=== PATIENT | male | born 1950 | race Caucasian/White ===

== ENCOUNTER → 2016-05-22 | Outpatient (CLI) | payer MEDICARE, OTHER ==
[~2016-05-22] MED LIST: AMBIEN10 M1 ORAL; AMBIEN5 MG ORAL; AMLODIPINE BES2.5 MG ORAL; ASPIR 8181 MG ORAL; ATORVASTATIN CA40 MG ORAL; CYTOMEL5 MCG ORAL; DEPAKOTE250 MG PO; DEPAKOTE500 MG PO; GABAPENTIN300 MG ORAL; IBUPROFEN600 MG ORAL; KLONOPIN1 MG ORAL; LEVOTHYROXINE25 MCG ORAL; LEXAPRO10 MG ORAL; LOSARTAN POTASS50 MG ORAL; PAMELOR25 MG ORAL; QUETIAPINE FUMA25 MG ORAL; WELLBUTRIN SR100 MG ORAL
--- NOTE | 2016-05-25 11:37 | Reflections ---
05/23/2016 LOCATION: [facility]. SUBJECTIVE: The patient is feeling much better. He went through Detox program and claims to be sober. His last urine tox screen shows positive for barbiturates, but he denies using any medications that are not prescribed. Denies using any barbiturates. His behavior appears to be otherwise pretty stable. He does not appear to be overmedicated on study. MENTAL STATUS EVALUATION: Alert and oriented to self and situation. Mood is anxious. Affect is appropriate. Thought process is linear. Cognition is intact. Impulse control, insight, and judgment are fair. DIAGNOSIS: Bipolar disorder, depressed. PLAN: Continue with current management. Continue to monitor symptoms and behavior. Chart reviewed. Case discussed with staff. No new symptoms, sedation, or side effects. Chang Lancaster M.D. DR: MYLES JOB#: [id number] CC: DAVID
== END | disposition home or self-care (01) ==
LOC: LAB 10:04
DX: F41.9 Anxiety disorder, unspecified (principal)
CPT/HCPCS: 80300

== ENCOUNTER → 2016-05-30 | Outpatient (CLI) | payer MEDICARE, OTHER ==
--- NOTE | 2016-06-01 22:19 | Reflections ---
DATE: 05/30/2016 SUBJECTIVE: Review of systems, the patient has been tested positive for barbiturates. Otherwise, he does not appear to be intoxicated or overmedicated. He seems to be compliant with care and follows directions. MENTAL STATUS EXAMINATION: Alert and oriented to self and situation. Mood is anxious. Affect is appropriate. Thought process is linear. Cognition is intact. Impulse control, insight, and judgment is partially impaired. DIAGNOSIS: Bipolar disorder. PLAN: Continue with current management. Continue to monitor symptoms and behavior. Chart reviewed. Case discussed with staff. No new symptoms observed or reported. Otherwise, we will continue to monitor the case. Chang Lancaster M.D. DR: TIAN JOB#: [id number] CC: DAVID
== END | disposition home or self-care (01) ==
LOC: LAB 11:42
DX: F31.9 Bipolar disorder, unspecified (principal)
CPT/HCPCS: 80300

== ENCOUNTER → 2016-06-13 | Outpatient (CLI) | payer MEDICARE, OTHER ==
--- NOTE | 2016-07-07 01:18 | Progress Note ---
DATE: 06/13/2016 SUBJECTIVE: The patient denies any new complaints. MENTAL STATUS EVALUATION: No change in his mental status exam. Mood is anxious. Affect is appropriate. Thought process is linear. Cognition is intact. Impulse control, insight, and judgment are partially impaired. DIAGNOSIS: Bipolar disorder. PLAN: The patient had drug screen positive for phenobarbital, but the level was extremely low, not suggestive of him abusing phenobarbital. He appears to be fairly well. No agitation. No confusion. No unsteady gait or slurred speech. No side effects. We will continue to monitor the case. Chang Lancaster M.D. DR: ARTI JOB#: [id number] CC:
== END | disposition home or self-care (01) ==
LOC: LAB 12:07
DX: F31.9 Bipolar disorder, unspecified (principal)
CPT/HCPCS: 80301

== ENCOUNTER 2017-01-03 20:35 | Inpatient (IN) | payer MEDICARE, MEDICAID ==
[~2017-01-03] VITALS: Ht 175.3 cm; Wt 111.6 kg
--- NOTE | 2017-01-03 20:51 | Emergency Room Report ---
History of Present Illness General Chief Complaint: Syncope Source: Patient, EMS Present Illness HPI 66YOM BIBEMS from ?psych facility with multiple episodes of "passing out when he sneezes" per EMS. One episode resulted in head trauma - bleeding from back of head. EMS and patient not sure when it occurred Patient himself is poor historian of events today States he has been coughing for 2 weeks. Denies fever/chills, history of asthma /COPD On ASA Denies neck pain, back pain, leg extremity pain, chest pain, SOB, abd pain Allergies: Coded Allergies: ALPRAZOLAM (Verified Adverse Reaction, Intermediate, 01/30/16) slurred speech, unsteady gait, poor decision making Patient History Past Medical History: psych hx Past Surgical History: none, unable to obtain Pertinent Family History: none, unable to obtain Social History: Denies: smoking, alcohol use, drug use Reviewed Nursing Documentation: PMH: Agreed, PSxH: Agreed Nursing Documentation-PMH Past Medical History: No History, Except For Hx Cardiac Problems: No Hx Hypertension: Yes Hx Pacemaker: No Hx Asthma: No Hx COPD: No Hx Cancer: No Hx Gastrointestinal Problems: No History Of Psychiatric Problem: Yes Hx Neurological Problems: No Review of Systems All Other Systems: negative except mentioned in HPI Physical Exam Vital Signs Date Time Temp Pulse Resp B/P (MAP) Pulse Ox O2 Delivery O2 Flow Rate FiO2 01/03/17 20:37 98.8 78 16 96/46 98 Room Air Sp02 EP Interpretation: reviewed, normal General Appearance: normal inspection, well appearing, no apparent distress, alert, mild distress Head: normocephalic, other - 3cm stellate lac to left occiput Eyes: bilateral eye PERRL, bilateral eye EOMI ENT: normal ENT inspection, hearing grossly normal, normal voice Neck: normal inspection, full range of motion, supple, no bony tend Respiratory: normal inspection, lungs clear, normal breath sounds, no respiratory distress, no retraction, no wheezing Cardiovascular #1: regular rate, rhythm, no edema Gastrointestinal: normal inspection, normal bowel sounds, non tender, soft, no guarding, no hernia Genitourinary: no CVA tenderness Musculoskeletal: normal inspection, back normal, normal range of motion, Joaquin' s Sign negative Neurologic: normal inspection, alert, oriented x3, responsive, executive administrator III-XII nml as tested, motor strength/tone normal, speech normal Psychiatric: normal inspection, judgement/insight normal, mood/affect normal Skin: normal inspection, normal color, no rash Lymphatic: normal inspection Medical Decision Making Diagnostic Impression: Primary Impression: Syncope Qualified Codes: R55 - Syncope and collapse Additional Impressions: Head trauma Qualified Codes: S09.90XA - Unspecified injury of head, initial encounter Laceration of head Qualified Codes: S01.91XA - Laceration without foreign body of unspecified part of head, initial encounter Acute on chronic renal insufficiency Dehydration ER Course Head CT negative for acute ICH Lac repaired in ED Tetanus updated SerumCr 2.3. baseline on EMR is 1.6-2 Likely acute on chronic renal failure Initial hypotension improved rapidly with IV fluid, likely dehydration that caused syncope and head trauma no other significant lab abnormalities ECG is NSR no ischemia. CXR No PNA Afebrile, no leuks. Unlikely infection as cause of syncope/trauma Endorsed for Tele to Dr Mendoza at 11pm EKG Diagnostic Results Rate: normal Rhythm: NSR ST Segments: no acute changes ASA given to the pt in ED: No Rhythm Strip Diag. Results EP Interpretation: yes Rate: 72 Rhythm: NSR, no PVC's, no ectopy Chest X-Ray Diagnostic Results Chest X-Ray Diagnostic Results : Chest X-Ray Ordered: Yes # of Views/Limited/Complete: 1 View Indication: Shortness of Breath EP Interpretation: Yes Interpretation: no consolidation, no effusion, no pneumothorax, no acute cardiopulmonary disease Last Vital Signs Date Time Temp Pulse Resp B/P (MAP) Pulse Ox O2 Delivery O2 Flow Rate FiO2 01/03/17 20:37 98.8 78 16 96/46 98 Room Air Status: improved Disposition: ADMITTED INPATIENT Condition: Serious JESSIE ACOSTA M.D. Jan 03, 2017 20:51
[2017-01-03 22:02] LABS: BASOPHILS % (AUTO) 0.5 % (0.0-2.0); EOSINOPHILS % (AUTO) 0.8 % (0.0-3.0); LYMPHOCYTES % (AUTO) 9.9 % (20.0-45.0); MEAN CORPUSCULAR HEMOGLOBIN 33.6 PG (27.0-31.0); MEAN CORPUSCULAR HGB CONC 35.6 G/DL (32.0-36.0); MEAN CORPUSCULAR VOLUME 94 FL (80-99); MEAN PLATELET VOLUME 7.7 FL (6.5-10.1); MONOCYTES % (AUTO) 9.7 % (1.0-10.0); NEUTROPHILS % (AUTO) 79.2 % (45.0-75.0); PLATELET COUNT 196 K/UL (150-450); RED BLOOD COUNT 3.19 M/UL (4.70-6.10); RED CELL DISTRIBUTION WIDTH 11.8 % (11.6-14.8); WHITE BLOOD COUNT 9.9 K/UL (4.8-10.8)
[2017-01-03 22:21] LABS: TROPONIN I < 0.30 ng/mL (<=0.30)
[2017-01-03 22:24] LABS: ALBUMIN/GLOBULIN RATIO 1.4 (1.0-2.7); CALCIUM 8.4 mg/dL (8.6-10.2); CREATININE 2.3 mg/dL (0.7-1.2); GLOMERULAR FILTRATION RATE 28.4 mL/min (>60); POTASSIUM 4.1 mEQ/L (3.4-4.9); TOTAL PROTEIN 5.9 g/dL (6.6-8.7)
[2017-01-03 22:29] VITALS: BP 117/84
[2017-01-03 22:34] LABS: CKMB 2.3 ng/mL (< 6.7)
[2017-01-03] MEDS ORDERED: Tetanus/Diptheria/Pertussis Vaccine 0.5ml Syr IM ONE (23:00)
[2017-01-03 23:40] VITALS: BP 112/65
[2017-01-04] VITALS: BP 109/64
[2017-01-04] MEDS ORDERED: AZITHROMYCIN250 MG ORAL (00:49)
[2017-01-04 01:30] LABS: APPEARANCE,URINE CLEAR; KETONES,URINE NEGATIVE (NEGATIVE); LEUKOCYTE ESTERASE ,URINE 1+ (NEGATIVE); NITRITE,URINE NEGATIVE (NEGATIVE); PH,URINE 6.5 (4.5-8.0); PROTEIN,URINE 1+ (NEGATIVE); UROBILINOGEN,URINE 4 MG/DL (0.0-1.0)
[2017-01-04 01:40] LABS: RBC,URINE 0 /HPF (0 - 0)
[2017-01-04 01:41] LABS: ICTOTEST POSITIVE; WBC,URINE 0-2 /HPF (0 - 0)
[2017-01-04 04:00] VITALS: BP 114/70
[2017-01-04] MEDS ORDERED: Mylanta II UD 30ml ORAL PRN (06:45)
[2017-01-04] MEDS ORDERED: DuoNeb 0.5-3(2.5)mg/3ml neb HHN PRN (06:45)
[2017-01-04] MEDS ORDERED: Miralax 17gm pkt ORAL PRN (06:45)
[2017-01-04] MEDS ORDERED: Nitroglycerin Subl 0.4mg tab SL PRN (06:45)
[2017-01-04] MEDS ORDERED: LORazepam Inj 2mg/ml 1ml IV PRN (06:45)
[2017-01-04 08:33] VITALS: BP 122/68
[2017-01-04] MEDS: BuPROPion SR 150mg tab ORAL SCH (08:41)
[2017-01-04] MEDS: Heparin 5000 units/ml inj SUBQ SCH ×2 (08:44→21:17)
--- NOTE | 2017-01-04 08:46 | Consultation ---
Consult Note Consult Note asked to evaluate for renal failure 66YOM BIBEMS from ?psych facility with multiple episodes of "passing out when he sneezes" per EMS. One episode resulted in head trauma - bleeding from back of head. EMS and patient not sure when it occurred Patient himself is poor historian of events today States he has been coughing for 2 weeks. Denies fever/chills, history of asthma /COPD On ASA Denies neck pain, back pain, leg extremity pain, chest pain, SOB, abd pain Allergies: ALPRAZOLAM (Verified Adverse Reaction, Intermediate, 01/30/16) slurred speech, unsteady gait, poor decision making Patient History Past Medical History: psych hx Hx Hypertension: Yes History Of Psychiatric Problem: Yes Assessment/Plan Renal failure- Acute on chronic Hypotension on presentation Syncope / head laceration Plan: Slow hydrate monitor renal parameters avoid nephrotoxics adjust psych meds ISRRAEL SHARMA Jan 04, 2017 08:46
[2017-01-04] MEDS ORDERED: Nortriptyline 25mg cap ORAL SCH (09:00)
[2017-01-04] MEDS ORDERED: Levothyroxine 25mcg tab ORAL SCH (09:00)
[2017-01-04] MEDS: DuoNeb 0.5-3(2.5)mg/3ml neb HHN SCH ×3 (09:13→19:34)
[2017-01-04] MEDS: Tamsulosin 0.4mg cap ORAL SCH ×2 (09:27→17:06)
[2017-01-04 09:38] LABS: URIC ACID 7.7 mg/dL (3.0-7.5)
--- NOTE | 2017-01-04 10:37 | Diagnostic Imaging Report ---
Indication: Headache. Head trauma Technique: Contiguous 5 mm thick transaxial imaging of the head obtained in a Siemens Sensation [address] scanner. Soft tissue and bone windows generated. Total Dose length Product (DLP): [address] Dose Index Volume (CTDIvol): 70.38, 0.15 mGy Comparison: 10/17/15 Findings: There is mild prominence of the ventricles, basal cisterns, and cerebral sulci consistent with atrophy. Mild, nonspecific, white matter hypoattenuation is noted throughout the brain consistent with chronic small vessel disease. There is no midline shift, edema, acute hemorrhage, mass effect, or abnormal extra-axial fluid collections. Bones and extra osseous soft tissues are unremarkable. Impression: No acute intracranial bleed, mass effect or edema. Mild atrophy of the brain. Nonspecific white matter hypoattenuation probably due to chronic small vessel disease. The CT scanner at [facility] is accredited by the [employer] and the scans are performed using dose optimization techniques as appropriate to a performed exam including Automatic Exposure control.
--- NOTE | 2017-01-04 11:05 | History and Physical ---
History of Present Illness General Date patient seen: Jan 04, 2017 Reason for Hospitalization: Syncope Present Illness HPI The patient is a 66-year-old male with past medical history of psychiatric disorder, bipolar, hypertension, and hypercholesterolemia. The patient was brought in by paramedics to [facility] because of altered level of consciousness and acute encephalopathy, syncope after sneezing. Pt was hypotensive in Er and was started on IV fluids He was also found to be in renal failure. Allergies: Coded Allergies: ALPRAZOLAM (Verified Adverse Reaction, Intermediate, 01/30/16) slurred speech, unsteady gait, poor decision making Medication History Scheduled Amlodipine Besylate* (Amlodipine Besylate*), 5 MG ORAL DAILY, (Reported) Aspirin* (Aspir 81*), 81 MG ORAL DAILY, (Reported) Atorvastatin Calcium* (Atorvastatin Calcium*), 80 MG ORAL BEDTIME, (Reported) Azithromycin* (Zithromax*), 250 MG ORAL DAILY, (Reported) Bupropion Sr* (Wellbutrin Sr*), 150 MG ORAL daily, (Reported) Escitalopram Oxalate* (Lexapro*), 40 MG ORAL DAILY, (Reported) Gabapentin* (Gabapentin*), 300 MG ORAL DAILY, (Reported) Levothyroxine Sodium* (Levothyroxine Sodium*), 10 MCG ORAL DAILY, (Reported) Liothyronine Sodium* (Cytomel*), 5 MCG ORAL BID, (Reported) Losartan Potassium* (Losartan Potassium*), 100 MG ORAL DAILY, (Reported) Nortriptyline Hcl* (Pamelor*), 25 MG ORAL bid, (Reported) Quetiapine Fumarate* (Seroquel*), 50 MG ORAL tid, (Reported) Scheduled PRN Zolpidem Tartrate* (Ambien*), 10 MG ORAL HS PRN for Insomnia, (Reported) Patient History Healthcare decision maker Resuscitation status Full Code Advanced Directive on File No Past Medical/Surgical History Past Medical/Surgical History: (1) ATN (acute tubular necrosis) (2) Psychiatric diagnosis (3) Acute encephalopathy (4) Acute on chronic renal insufficiency (5) Syncope (6) Hypotension Review of Systems All Other Systems: negative except mentioned in HPI Physical Exam General Appearance: WD/WN Lines, tubes and drains: peripheral, central line HEENT: normocephalic, atraumatic Neck: non-tender, normal alignment Respiratory/Chest: chest wall non-tender, lungs clear Breasts: no masses Cardiovascular/Chest: normal peripheral pulses Abdomen: normal bowel sounds, non tender Genitourinary/Rectal: normal genital exam Extremities: normal range of motion Neurologic: story teller II-XII grossly normal Last 24 Hour Vital Signs Date Time Temp Pulse Resp B/P (MAP) Pulse Ox O2 Delivery O2 Flow Rate FiO2 01/04/17 08:33 97.7 69 20 122/68 98 Room Air 01/04/17 07:54 68 01/04/17 04:00 64 01/04/17 04:00 97.5 69 18 114/70 99 Simple Mask 01/04/17 00:00 71 01/04/17 00:00 97.3 74 18 109/64 99 Simple Mask 01/03/17 23:40 73 12 112/65 98 Room Air 01/03/17 23:40 97.9 73 15 117/84 100 Room Air 01/03/17 22:29 97.9 71 15 117/84 100 Room Air 01/03/17 20:37 98.8 78 16 96/46 98 Room Air Intake and Output 01/04/17 01/05/17 19:00 07:00 Intake Total 350 ml Balance 350 ml Intake Oral 350 ml # Voids 1 Laboratory Tests Test 01/03/17 21:10 01/03/17 23:59 01/04/17 08:48 White Blood Count 9.9 K/UL (4.8-10.8) Red Blood Count 3.19 M/UL (4.70-6.10) L Hemoglobin 10.7 G/DL (14.2-18.0) L Hematocrit 30.1 % (42.0-52.0) L Mean Corpuscular Volume 94 FL (80-99) Mean Corpuscular Hemoglobin 33.6 PG (27.0-31.0) H Mean Corpuscular Hemoglobin Concent 35.6 G/DL (32.0-36.0) Red Cell Distribution Width 11.8 % (11.6-14.8) Platelet Count 196 K/UL (150-450) Mean Platelet Volume 7.7 FL (6.5-10.1) Neutrophils (%) (Auto) 79.2 % (45.0-75.0) H Lymphocytes (%) (Auto) 9.9 % (20.0-45.0) L Monocytes (%) (Auto) 9.7 % (1.0-10.0) Eosinophils (%) (Auto) 0.8 % (0.0-3.0) Basophils (%) (Auto) 0.5 % (0.0-2.0) Sodium Level 137 mEQ/L (135-145) Potassium Level 4.1 mEQ/L (3.4-4.9) Chloride Level 99 mEQ/L (98-107) Carbon Dioxide Level 24 mEQ/L (20-30) Anion Gap 14 (5-15) Blood Urea Nitrogen 30 mg/dL (7-23) H Creatinine 2.3 mg/dL (0.7-1.2) H Estimat Glomerular Filtration Rate 28.4 mL/min (>60) Glucose Level 125 mg/dL (74-106) H Lactic Acid Level 1.30 mmol/L (0.66-2.22) Calcium Level 8.4 mg/dL (8.6-10.2) L Total Bilirubin 0.7 mg/dL (0.0-1.2) Aspartate Amino Transf (AST/SGOT) 20 U/L (5-40) Alanine Aminotransferase (ALT/SGPT) 13 U/L (3-41) Alkaline Phosphatase 75 U/L (40-129) Total Creatine Kinase 267 U/L (38-174) H 323 U/L (38-174) H Creatine Kinase MB 2.3 ng/mL (< 6.7) Creatine Kinase MB Relative Index 0.8 Troponin I < 0.30 ng/mL (<=0.30) Total Protein 5.9 g/dL (6.6-8.7) L Albumin 3.5 g/dL (3.5-5.2) Globulin 2.4 g/dL Albumin/Globulin Ratio 1.4 (1.0-2.7) Urine Color Yellow Urine Appearance Clear Urine pH 6.5 (4.5-8.0) Urine Specific [place] 1.010 (1.005-1.035) Urine Protein 1+ (NEGATIVE) H Urine Glucose (UA) Negative (NEGATIVE) Urine Ketones Negative (NEGATIVE) Urine Occult Blood Negative (NEGATIVE) Urine Nitrite Negative (NEGATIVE) Urine Bilirubin 1+ (NEGATIVE) H Urine Ictotest Positive Urine Urobilinogen 4 MG/DL (0.0-1.0) H Urine Leukocyte Esterase 1+ (NEGATIVE) H Urine RBC 0 /HPF (0 - 0) Urine WBC 0-2 /HPF (0 - 0) Urine Squamous Epithelial Cells None /LPF (NONE/OCC) Urine Bacteria None /HPF (NONE) Uric Acid 7.7 mg/dL (3.0-7.5) H Height (Feet): 5 Height (Inches): 9.00 Weight (Pounds): 246 Medications Current Medications Medications (Trade) Dose Ordered Sig/Ira Route PRN Reason Start Time Stop Time Status Last Admin Dose Admin Acetaminophen (Tylenol) 650 mg Q4H PRN ORAL fever 01/04/17 06:45 02/03/17 06:44 Al Hydroxide/Mg Hydroxide (Mylanta II) 30 ml Q6H PRN ORAL dyspepsia 01/04/17 06:45 02/03/17 06:44 Albuterol/ Ipratropium (DuoNeb 0.5-3(2.5)mg/3ml) 3 ml Q4H PRN HHN Shortness of Breath 01/04/17 06:45 01/09/17 06:44 Albuterol/ Ipratropium (DuoNeb 0.5-3(2.5)mg/3ml) 3 ml Q6HRT HHN 01/04/17 07:00 01/09/17 06:59 01/04/17 09:13 Atorvastatin Calcium (Lipitor) 80 mg BEDTIME ORAL 01/04/17 21:00 02/03/17 20:59 Bupropion HCl (Wellbutrin SR) 150 mg DAILY ORAL 01/04/17 09:00 02/03/17 08:59 01/04/17 08:41 Clonidine HCl (Catapres) 0.1 mg Q4H PRN ORAL For High Blood Pressure 01/04/17 06:45 02/03/17 06:44 Dextrose (Dextrose 50%) STAT PRN IV Hypoglycemia 01/04/17 06:45 02/03/17 06:44 Escitalopram Oxalate (Lexapro) 40 mg DAILY ORAL 01/04/17 09:00 02/03/17 08:59 01/04/17 08:41 Gabapentin (Neurontin) 300 mg DAILY ORAL 01/04/17 09:00 02/03/17 08:59 01/04/17 08:41 Heparin Sodium (Porcine) (Heparin 5000 units/ml) 5,000 units EVERY 12 HOURS SUBQ 01/04/17 09:00 02/03/17 08:59 01/04/17 08:44 Liothyronine Sodium (Cytomel) 10 mcg DAILY@0630 ORAL 01/05/17 06:30 02/04/17 06:29 Lorazepam (Ativan 2mg/ml 1ml) 0.5 mg Q4H PRN IV For Anxiety 01/04/17 06:45 01/11/17 06:44 Morphine Sulfate (Morphine Sulfate) 1 mg Q4H PRN IVP For Pain 7-10 01/04/17 06:45 01/11/17 06:44 Nitroglycerin (Ntg) 0.4 mg Q5M X 3 DOSES PRN SL Prn Chest Pain 01/04/17 06:45 02/03/17 06:44 Nortriptyline HCl (Pamelor) 25 mg bid ORAL 01/04/17 09:00 02/03/17 08:59 01/04/17 08:41 Ondansetron HCl (Zofran) 4 mg Q6H PRN IVP Nausea & Vomiting 01/04/17 06:45 02/03/17 06:44 Pneumococcal Polyvalent Vaccine (Pneumovax) 0.5 ml ONCE ONCE IM 01/04/17 11:00 01/04/17 11:01 UNV Polyethylene Glycol (Miralax) 17 gm HSPRN PRN ORAL Constipation 01/04/17 06:45 02/03/17 06:44 Promethazine HCl/ Codeine (Phenergan with Codeine) 5 ml Q4H PRN ORAL For Cough 01/04/17 06:45 02/03/17 06:44 Quetiapine Fumarate (SEROquel) 50 mg tid ORAL 01/04/17 09:00 02/03/17 08:59 01/04/17 08:42 Sodium Chloride 1,000 ml @ 75 mls/hr [id number] IV 01/04/17 08:45 02/03/17 08:44 01/04/17 09:30 Tamsulosin HCl (Flomax) 0.4 mg BID ORAL 01/04/17 09:00 02/03/17 08:59 01/04/17 09:27 Temazepam (Restoril) 15 mg HSPRN PRN ORAL Insomnia 01/04/17 06:45 01/11/17 06:44 Assessment/Plan Problem List: (1) Acute encephalopathy ICD Codes: G93.40 - Encephalopathy, unspecified SNOMED: 3764291 (2) Syncope ICD Codes: R55 - Syncope and collapse SNOMED: 343916867 Qualifiers: Qualified Codes: R55 - Syncope and collapse (3) ATN (acute tubular necrosis) ICD Codes: N17.0 - Acute kidney failure with tubular necrosis SNOMED: 67802928 (4) Hypotension ICD Codes: I95.9 - Hypotension, unspecified SNOMED: 21328732 (5) Psychiatric diagnosis ICD Codes: F99 - Mental disorder, not otherwise specified SNOMED: 18434399, 470035587 Assessment/Plan iv fluids hold bp meds echo renal evaluation. CATALINO MCKENZIE Jan 04, 2017 11:05
[2017-01-04] MEDS: Morphine Sulfate 2mg/ml Inj IVP PRN ×3 (11:28→23:53)
--- NOTE | 2017-01-04 11:31 | Diagnostic Imaging Report ---
Indication: Dyspnea Comparison: None A single view chest radiograph was obtained. Findings: No definite infiltrate or pulmonary vascular congestion identified. The heart is enlarged. The aorta is mildly enlarged consistent with atherosclerotic vascular disease. The bones are osteopenic. Impression: No acute disease
[2017-01-04 13:00] VITALS: BP 109/64
--- NOTE | 2017-01-04 16:33 | Cardiology Progress Note ---
Assessment/Plan Assessment/Plan [id number] post tussive syncoep cough bronchospasm renal insuf htn hyper lipdimia ivf orthosttic vital echo limited hernandez avodi anihypertensives for now Objective Last 24 Hour Vital Signs Date Time Temp Pulse Resp B/P (MAP) Pulse Ox O2 Delivery O2 Flow Rate FiO2 01/04/17 13:35 70 20 100 01/04/17 13:30 69 20 98 Room Air 21 01/04/17 13:00 97.5 70 20 109/64 92 Nasal Cannula 01/04/17 11:58 97.7 01/04/17 11:54 66 01/04/17 08:33 97.7 69 20 122/68 98 Room Air 01/04/17 07:54 68 01/04/17 07:35 70 20 100 01/04/17 07:30 Room Air 21 01/04/17 07:30 69 20 Room Air 21 01/04/17 07:30 68 20 98 Room Air 21 01/04/17 07:30 98 Room Air 21 01/04/17 04:00 64 01/04/17 04:00 97.5 69 18 114/70 99 Simple Mask 01/04/17 00:00 71 01/04/17 00:00 97.3 74 18 109/64 99 Simple Mask 01/03/17 23:40 73 12 112/65 98 Room Air 01/03/17 23:40 97.9 73 15 117/84 100 Room Air 01/03/17 22:29 97.9 71 15 117/84 100 Room Air 01/03/17 20:37 98.8 78 16 96/46 98 Room Air Intake and Output 01/04/17 01/05/17 19:00 07:00 Intake Total 875 ml Balance 875 ml Intake Oral 350 ml IV Total 525 ml # Voids 2 Laboratory Tests Test 01/03/17 21:10 01/03/17 23:59 01/04/17 08:48 White Blood Count 9.9 K/UL (4.8-10.8) Red Blood Count 3.19 M/UL (4.70-6.10) L Hemoglobin 10.7 G/DL (14.2-18.0) L Hematocrit 30.1 % (42.0-52.0) L Mean Corpuscular Volume 94 FL (80-99) Mean Corpuscular Hemoglobin 33.6 PG (27.0-31.0) H Mean Corpuscular Hemoglobin Concent 35.6 G/DL (32.0-36.0) Red Cell Distribution Width 11.8 % (11.6-14.8) Platelet Count 196 K/UL (150-450) Mean Platelet Volume 7.7 FL (6.5-10.1) Neutrophils (%) (Auto) 79.2 % (45.0-75.0) H Lymphocytes (%) (Auto) 9.9 % (20.0-45.0) L Monocytes (%) (Auto) 9.7 % (1.0-10.0) Eosinophils (%) (Auto) 0.8 % (0.0-3.0) Basophils (%) (Auto) 0.5 % (0.0-2.0) Sodium Level 137 mEQ/L (135-145) Potassium Level 4.1 mEQ/L (3.4-4.9) Chloride Level 99 mEQ/L (98-107) Carbon Dioxide Level 24 mEQ/L (20-30) Anion Gap 14 (5-15) Blood Urea Nitrogen 30 mg/dL (7-23) H Creatinine 2.3 mg/dL (0.7-1.2) H Estimat Glomerular Filtration Rate 28.4 mL/min (>60) Glucose Level 125 mg/dL (74-106) H Lactic Acid Level 1.30 mmol/L (0.66-2.22) Calcium Level 8.4 mg/dL (8.6-10.2) L Total Bilirubin 0.7 mg/dL (0.0-1.2) Aspartate Amino Transf (AST/SGOT) 20 U/L (5-40) Alanine Aminotransferase (ALT/SGPT) 13 U/L (3-41) Alkaline Phosphatase 75 U/L (40-129) Total Creatine Kinase 267 U/L (38-174) H 323 U/L (38-174) H Creatine Kinase MB 2.3 ng/mL (< 6.7) Creatine Kinase MB Relative Index 0.8 Troponin I < 0.30 ng/mL (<=0.30) Total Protein 5.9 g/dL (6.6-8.7) L Albumin 3.5 g/dL (3.5-5.2) Globulin 2.4 g/dL Albumin/Globulin Ratio 1.4 (1.0-2.7) Urine Color Yellow Urine Appearance Clear Urine pH 6.5 (4.5-8.0) Urine Specific [place] 1.010 (1.005-1.035) Urine Protein 1+ (NEGATIVE) H Urine Glucose (UA) Negative (NEGATIVE) Urine Ketones Negative (NEGATIVE) Urine Occult Blood Negative (NEGATIVE) Urine Nitrite Negative (NEGATIVE) Urine Bilirubin 1+ (NEGATIVE) H Urine Ictotest Positive Urine Urobilinogen 4 MG/DL (0.0-1.0) H Urine Leukocyte Esterase 1+ (NEGATIVE) H Urine RBC 0 /HPF (0 - 0) Urine WBC 0-2 /HPF (0 - 0) Urine Squamous Epithelial Cells None /LPF (NONE/OCC) Urine Bacteria None /HPF (NONE) Uric Acid 7.7 mg/dL (3.0-7.5) H MICHOACANO BARBER Jan 04, 2017 16:33
[2017-01-04 16:47] VITALS: BP 121/71
[2017-01-04] MEDS ORDERED: Pneumococcal Vaccine 25mcg/0.5ml IM ONE (17:00)
[2017-01-04 20:00] VITALS: BP 119/68
[2017-01-04] MEDS: Nortriptyline 25mg cap ORAL SCH (21:18)
[2017-01-04] MEDS: Atorvastatin 80mg tab ORAL SCH (21:18)
[2017-01-05] VITALS: BP 113/66
[2017-01-05] MEDS: Promethazine/Codeine 5ml UD ORAL PRN (00:33)
--- NOTE | 2017-01-05 00:45 | Consultation ---
DATE OF CONSULTATION: 01/04/2017 CARDIOLOGY CONSULTATION REFERRING PHYSICIAN: Kaylynn Mendoza M.D. REASON FOR REFERRAL: Syncope. History Of Present Illness: This is an elderly 66-year-old gentleman with history of hypertension, hyperlipidemia, and bipolar disorder, who was in a drug rehabilitation program apparently. He has been sober for approximately 9 months. He had some chicken sandwich few nights ago, vomited, and he has been coughing significantly for the past 3 or 4 weeks and whenever he coughs, sometimes he feels like he is going to pass out and on one of these occasions after coughing spell, he found himself on the floor and was bleeding from his scalp. He went to his primary care doctor's office. Paramedics were summoned and instead of taking him to [facility] where he usually gets his care, he was brought here to [facility] and was admitted. This consultation was requested by Dr. Mendoza for management of his syncope. He really does not have any dizziness or lightheadedness on standing. He has not had any chest pain or pressure. No PND. No orthopnea. He does have some shortness of breath on climbing uphill, but he has no pain, pressure, tightness, heaviness, or burning sensation when he does physical activity or climbing uphill at all. He never passed out and this is the first time that this has happened to him. Past Medical History: Positive for high blood pressure, high cholesterol as mentioned, history of substance abuse for which he was sober for 27 years. He had relapse and has basically been sober again for the past 9 months. No cancer, stroke, hepatitis, tuberculosis, asthma, or emphysema. No ulcers, kidney problems, liver problems, thyroid problems, anemia, arthritis, HIV, AIDS, blood clots, or narrowing of the vessels anywhere. ALLERGIES: His allergy is to Xanax apparently. Social History: He used to smoke and drink many years ago, but not any more. He used to be on drugs as mentioned and most recent drug has been some narcotic, apparently pain medication, but he used cocaine on prior occasions as well. Review Of Systems: Gastrointestinal: The episode of nausea and vomiting as mentioned a few nights ago. Genitourinary: Otherwise negative. Pulmonary: Positive for coughing or wheezing. Constitutional: No fever, chills, or night sweats. Neurological: Negative. Cardiac: As mentioned in HPI. PHYSICAL EXAMINATION: General: Shows him to be overweight, middle-aged gentleman, in no respiratory distress. Neck: Supple. No jugular venous distention. No abdominojugular reflux noted. LUNGS: There are wheezes and rhonchi noted bilaterally. Cardiac: Regular rate and rhythm. No heaves, thrills, or gallops noted. ABDOMEN: Soft and nontender. Positive bowel sounds. Obese. EXTREMITIES: There is no clubbing, cyanosis, nor is there any edema. Neurological: He is awake, alert, responsive, and in no apparent respiratory distress. Further data, I have been able to find the graves registration specialist run sheet that indicates that this gentleman was found sitting on the floor alert and oriented with a small laceration noted at the back of the head. The patient had syncope x2 today while sitting. The patient states he had hard cough which caused him to pass out or fall out of chair hitting the corner of a small table onto the floor. Denied any neck or back pain. No chest pains or shortness of breath and apparently the graves registration specialist documented systolic blood pressure of 94/65 and 105/60 prior to his arrival in the emergency room. Laboratory And Diagnostic Data: His laboratory values are white count 9.9, hemoglobin 10.7, and platelet count of 196,000. Sodium 137, potassium 4.1, chloride 94, bicarbonate 24, BUN 30, creatinine 2.2, and glucose of 125. Lactic acid 1.3. Uric acid 7.7. Calcium 8.2. CK 267 and 323. Troponin less than 0.3 and albumin of 3.5. Urinalysis is positive for test, urobilinogen, 1+ leukocyte esterase, and 0 to 2 WBCs. His vital signs on arrival here, he has had blood pressures anywhere between original 96/46 to 122/68. His imaging showed head CT that was performed in the emergency room which shows no intracranial bleed, mass effect, or edema; mild atrophy of the brain and nonspecific white matter hypoattenuation was documented. Chest x-ray showed no acute disease. His electrocardiogram shows normal sinus rhythm, really no significant ST-T wave abnormalities of any significant degree and his telemetry data showed basically sinus rhythm. There are no pauses, no VT, SVT, or bradycardic rhythm documented. ASSESSMENT: 1. Posttussive syncope. 2. Cough and bronchospasm. 3. History of hypertension. 4. History of hyperlipidemia. 5. Bipolar disorder. 6. History of substance abuse, now sober for approximately 9 months. 7. Renal insufficiency. Plan: Dr. Mendoza, this patient was seen in cardiac consultation. The patient usually is on antihypertensive medications. His blood pressure post syncope apparently was on the low side. He usually takes amlodipine as well as losartan as well for his blood pressure, none of which would need to be started at the present time. I do agree with him receiving intravenous fluids and limited workup of his syncope should be initiated including an echocardiogram. The cardiac enzyme will be repeated; however, the signs, symptoms, and description that he provides are really suggestive of syncope and may have been exacerbated by hypotension from medications as well. Further recommendations will be provided depending on the finding of the other tests. In light of his renal insufficiency, his Cozaar should be discontinued long-term. Philipp Zamora M.D. DR: ROSS JOB#: [id number] CC:
[2017-01-05] MEDS: DuoNeb 0.5-3(2.5)mg/3ml neb HHN SCH ×4 (01:25→20:31)
[2017-01-05 04:00] VITALS: BP 100/60
[2017-01-05] MEDS: Morphine Sulfate 2mg/ml Inj IVP PRN (04:26)
[2017-01-05] MEDS: Liothyronine 5mcg tab ORAL SCH (06:52)
[2017-01-05 07:25] LABS: APPEARANCE,URINE SLIGHTLY CLOUDY; KETONES,URINE NEGATIVE (NEGATIVE); LEUKOCYTE ESTERASE ,URINE 1+ (NEGATIVE); NITRITE,URINE NEGATIVE (NEGATIVE); PH,URINE 6 (4.5-8.0); PROTEIN,URINE 1+ (NEGATIVE); UROBILINOGEN,URINE 1 MG/DL (0.0-1.0)
[2017-01-05 08:00] VITALS: BP 113/56
[2017-01-05 08:11] LABS: BACTERIA,URINE FEW /HPF; ICTOTEST NEGATIVE; MUCUS,URINE FEW /LPF (NONE/OCC); RBC,URINE 0-2 /HPF (0 - 0); SQUAMOUS EPITHELIAL CELL,UR OCCASIONAL /LPF (NONE/OCC); WBC,URINE 0-2 /HPF (0 - 0)
[2017-01-05 08:45] LABS: BASOPHILS % (AUTO) 0.4 % (0.0-2.0); EOSINOPHILS % (AUTO) 2.7 % (0.0-3.0); LYMPHOCYTES % (AUTO) 13.6 % (20.0-45.0); MEAN CORPUSCULAR HEMOGLOBIN 31.9 PG (27.0-31.0); MEAN CORPUSCULAR VOLUME 97 FL (80-99); MEAN PLATELET VOLUME 7.2 FL (6.5-10.1); MONOCYTES % (AUTO) 5.3 % (1.0-10.0); PLATELET COUNT 257 K/UL (150-450); RED BLOOD COUNT 3.56 M/UL (4.70-6.10); RED CELL DISTRIBUTION WIDTH 12.2 % (11.6-14.8); WHITE BLOOD COUNT 8.2 K/UL (4.8-10.8)
[2017-01-05 08:50] LABS: PROTHROMBIN TIME 10.2 SEC (9.30-11.50)
[2017-01-05] MEDS: Nortriptyline 25mg cap ORAL SCH ×2 (08:52→21:50)
[2017-01-05] MEDS: Tamsulosin 0.4mg cap ORAL SCH ×2 (08:52→17:28)
[2017-01-05] MEDS: BuPROPion SR 150mg tab ORAL SCH (08:52)
[2017-01-05] MEDS: Heparin 5000 units/ml inj SUBQ SCH ×2 (08:54→21:52)
[2017-01-05 09:01] LABS: ALBUMIN/GLOBULIN RATIO 1.3 (1.0-2.7); CALCIUM 8.5 mg/dL (8.6-10.2); CHOLESTEROL/HDL RATIO 3.6 (3.3-4.4); CREATININE 1.8 mg/dL (0.7-1.2); GLOMERULAR FILTRATION RATE 37.7 mL/min (>60); POTASSIUM 3.8 mEQ/L (3.4-4.9); TOTAL PROTEIN 6.7 g/dL (6.6-8.7)
[2017-01-05 09:04] LABS: CRP QUANT 8.5 mg/dL (< 0.5); MAGNESIUM 2.1 mg/dL (1.7-2.5); PHOSPHORUS 2.9 mg/dL (2.5-4.8); URIC ACID 7.7 mg/dL (3.0-7.5)
[2017-01-05 09:06] LABS: HEMOLYSIS 0; IRON 34 ug/dL (59-158); TOTAL IRON BINDING CAPACITY 248 ug/dL (250-400)
[2017-01-05 09:16] LABS: THYROID STIMULATING HORMONE 1.07 uIU/mL (0.300-4.500)
[2017-01-05 09:30] LABS: LACTATE DEHYDROGENASE 244 U/L (135-230)
[2017-01-05 09:46] LABS: PATH BLOOD SMEAR/OMC SEND TO PATHOLOGIST; RETICULOCYTE COUNT 1.9 % (0.0-2.0)
[2017-01-05 09:55] LABS: ERYTHROCYTE SEDIMENTATION RATE 102 MM/HR (0-20)
[2017-01-05 10:00] LABS: BAND NEUTROPHILS % (MANUAL) 0 % (0-8); BASOPHILS % (MANUAL) 0 % (0-2); EOSINOPHILS % (MANUAL) 4 % (0-3); LYMPHOCYTES % (MANUAL) 16 % (20-45); NEUTROPHILS % (MANUAL) 76 % (45-75); PLATELET ESTIMATE ADEQUATE; TOTAL CELLS COUNTED 100
[2017-01-05 10:01] LABS: TEAR DROP CELLS 1+
[2017-01-05 10:02] LABS: BLISTER CELL 1+; MACROCYTES 1+; PLATELET MORPHOLOGY NORMAL
--- NOTE | 2017-01-05 11:21 | Pulmonology Progress Note ---
Assessment/Plan Problems: (1) Acute encephalopathy (2) Syncope (3) ATN (acute tubular necrosis) (4) Hypotension (5) Psychiatric diagnosis Assessment/Plan add zosyn for presumptive uti and bronchitis renal w/u in progress bp still borderline low all reviewed awaiting psych evaluation as well Subjective ROS Limited/Unobtainable: No Constitutional: Reports: no symptoms HEENT: Repors: no symptoms Respiratory: Reports: no symptoms Allergies: Coded Allergies: ALPRAZOLAM (Verified Adverse Reaction, Intermediate, 01/30/16) slurred speech, unsteady gait, poor decision making Objective Last 24 Hour Vital Signs Date Time Temp Pulse Resp B/P (MAP) Pulse Ox O2 Delivery O2 Flow Rate FiO2 01/05/17 09:00 75 77 80 01/05/17 08:00 70 01/05/17 08:00 97.9 75 23 113/56 96 Nasal Cannula 2.0 01/05/17 07:51 Nasal Cannula 2.0 28 01/05/17 07:51 94 Nasal Cannula 2.0 28 01/05/17 07:30 77 20 93 Nasal Cannula 2.0 28 01/05/17 07:25 78 20 90 Nasal Cannula 2.0 28 01/05/17 04:00 69 01/05/17 04:00 98.0 67 20 100/60 95 Nasal Cannula 2.0 01/05/17 01:33 74 20 93 Nasal Cannula 2.0 28 01/05/17 01:25 75 20 89 Nasal Cannula 2.0 28 01/05/17 00:00 97.2 70 20 113/66 90 Nasal Cannula 01/05/17 00:00 72 01/04/17 20:00 72 01/04/17 20:00 97.9 74 20 119/68 92 Nasal Cannula 01/04/17 19:40 67 20 98 Nasal Cannula 2.0 28 01/04/17 19:35 71 20 93 Nasal Cannula 2.0 28 01/04/17 19:34 Nasal Cannula 2.0 28 01/04/17 17:46 72 80 78 01/04/17 16:47 99.4 102 18 121/71 98 Room Air 01/04/17 15:59 68 01/04/17 13:35 70 20 100 01/04/17 13:30 69 20 98 Room Air 21 01/04/17 13:00 97.5 70 20 109/64 92 Nasal Cannula 01/04/17 11:58 97.7 01/04/17 11:54 66 Intake and Output 01/05/17 01/06/17 19:00 07:00 Output Total 375 ml Balance -375 ml Output Urine Total 375 ml General Appearance: WD/WN HEENT: normocephalic, anicteric Cardiovascular: normal rate, no JVD Abdomen: no organomegaly Genitourinary: normal external genitalia Extremities: no cyanosis Skin: no rash Microbiology Date/Time Source Procedure Growth Status 01/03/17 21:25 Blood Blood Culture - Preliminary NO GROWTH AFTER 24 HOURS Resulted 01/03/17 21:15 Blood Blood Culture - Preliminary NO GROWTH AFTER 24 HOURS Resulted 01/04/17 12:45 Sputum Gram Stain - Final Resulted 01/04/17 12:45 Sputum Sputum Culture - Preliminary NORMAL UPPER RESPIRATORY JEFF AT 24 ... Resulted Laboratory Tests 01/05/17 07:05: Urine Color Lynn, Urine Appearance Slightly cloudy, Urine pH 6, Urine Specific [place] 1.020, Urine Protein 1+H, Urine Glucose (UA) Negative, Urine Ketones Negative, Urine Occult Blood Negative, Urine Nitrite Negative, Urine Bilirubin Negative, Urine Ictotest Negative, Urine Urobilinogen 1H, Urine Leukocyte Esterase 1+H, Urine RBC 0-2H, Urine WBC 0-2, Urine Squamous Epithelial Cells Occasional, Urine Bacteria Few, Urine Mucus FewH, Urine Eosinophils None seen, Urine Random Sodium 79, Urine Potassium Timed 63 01/05/17 07:24: White Blood Count 8.2, Red Blood Count 3.56L, Hemoglobin 11.4L, Hematocrit 34.4L , Mean Corpuscular Volume 97, Mean Corpuscular Hemoglobin 31.9H, Mean Corpuscular Hemoglobin Concent 33.0, Red Cell Distribution Width 12.2, Platelet Count 257, Mean Platelet Volume 7.2, Neutrophils (%) (Auto) 78.0H, Lymphocytes ( %) (Auto) 13.6L, Monocytes (%) (Auto) 5.3, Eosinophils (%) (Auto) 2.7, Basophils (%) (Auto) 0.4, Differential Total Cells Counted 100, Neutrophils % ( Manual) 76H, Lymphocytes % (Manual) 16L, Monocytes % (Manual) 4, Eosinophils % ( Manual) 4H, Basophils % (Manual) 0, Band Neutrophils 0, Platelet Estimate Adequate, Platelet Morphology Normal, Clumped Platelets , Macrocytosis 1+, Tear Drop Cells 1+, Blister Cells 1+, Erythrocyte Sedimentation Rate 102H, Reticulocyte Count 1.9, Prothrombin Time 10.2, Prothromb Time International Ratio 1.0, Activated Partial Thromboplast Time 28, Sodium Level 138, Potassium Level 3.8, Chloride Level 101, Carbon Dioxide Level 25, Anion Gap 12, Blood Urea Nitrogen 28H, Creatinine 1.8H, Estimat Glomerular Filtration Rate 37.7, Glucose Level 127H, Hemoglobin A1c 5.0, Uric Acid 7.7H, Calcium Level 8.5L, Phosphorus Level 2.9, Magnesium Level 2.1, Iron Level 34L, Total Iron Binding Capacity 248L, Percent Iron Saturation 14L, Unsaturated Iron Binding 214, Total Bilirubin 0.6, Gamma Glutamyl Transpeptidase 26, Aspartate Amino Transf (AST/ SGOT) 17, Alanine Aminotransferase (ALT/SGPT) 14, Alkaline Phosphatase 104, Lactate Dehydrogenase 244H, Total Creatine Kinase 352H, C-Reactive Protein, Quantitative 8.5H, Pro-B-Type Natriuretic Peptide 103, Total Protein 6.7, Albumin 3.9, Globulin 2.8, Albumin/Globulin Ratio 1.3, Triglycerides Level 143, Cholesterol Level 201H, LDL Cholesterol 116H, HDL Cholesterol 56, Cholesterol/ HDL Ratio 3.6, Carcinoembryonic Antigen 1.2, Vitamin B12 Level 508, Folate [ Pending], Thyroid Stimulating Hormone (TSH) 1.070 Current Medications Medications (Trade) Dose Ordered Sig/Ira Route PRN Reason Start Time Stop Time Status Last Admin Dose Admin Acetaminophen (Tylenol) 650 mg Q4H PRN ORAL fever 01/04/17 06:45 02/03/17 06:44 Al Hydroxide/Mg Hydroxide (Mylanta II) 30 ml Q6H PRN ORAL dyspepsia 01/04/17 06:45 02/03/17 06:44 Albuterol/ Ipratropium (DuoNeb 0.5-3(2.5)mg/3ml) 3 ml Q4H PRN HHN Shortness of Breath 01/04/17 06:45 01/09/17 06:44 Albuterol/ Ipratropium (DuoNeb 0.5-3(2.5)mg/3ml) 3 ml Q6HRT HHN 01/04/17 07:00 01/09/17 06:59 01/05/17 07:49 Atorvastatin Calcium (Lipitor) 80 mg BEDTIME ORAL 01/04/17 21:00 02/03/17 20:59 01/04/17 21:18 Bupropion HCl (Wellbutrin SR) 150 mg DAILY ORAL 01/04/17 09:00 02/03/17 08:59 01/05/17 08:52 Clonidine HCl (Catapres) 0.1 mg Q4H PRN ORAL For High Blood Pressure 01/04/17 06:45 02/03/17 06:44 Dextrose (Dextrose 50%) STAT PRN IV Hypoglycemia 01/04/17 06:45 02/03/17 06:44 Escitalopram Oxalate (Lexapro) 40 mg DAILY ORAL 01/04/17 09:00 02/03/17 08:59 01/05/17 08:51 Gabapentin (Neurontin) 300 mg DAILY ORAL 01/04/17 09:00 02/03/17 08:59 01/05/17 08:51 Heparin Sodium (Porcine) (Heparin 5000 units/ml) 5,000 units EVERY 12 HOURS SUBQ 01/04/17 09:00 02/03/17 08:59 01/05/17 08:54 Liothyronine Sodium (Cytomel) 10 mcg DAILY@0630 ORAL 01/05/17 06:30 02/04/17 06:29 01/05/17 06:52 Lorazepam (Ativan 2mg/ml 1ml) 0.5 mg Q4H PRN IV For Anxiety 01/04/17 06:45 01/11/17 06:44 Morphine Sulfate (Morphine Sulfate) 1 mg Q4H PRN IVP For Pain 7-10 01/04/17 06:45 01/11/17 06:44 01/05/17 04:26 Nitroglycerin (Ntg) 0.4 mg Q5M X 3 DOSES PRN SL Prn Chest Pain 01/04/17 06:45 02/03/17 06:44 Nortriptyline HCl (Pamelor) 25 mg Q12HR ORAL 01/04/17 21:00 02/03/17 08:59 01/05/17 08:52 Ondansetron HCl (Zofran) 4 mg Q6H PRN IVP Nausea & Vomiting 01/04/17 06:45 02/03/17 06:44 Polyethylene Glycol (Miralax) 17 gm HSPRN PRN ORAL Constipation 01/04/17 06:45 02/03/17 06:44 Promethazine HCl/ Codeine (Phenergan with Codeine) 5 ml Q4H PRN ORAL For Cough 01/04/17 06:45 02/03/17 06:44 01/05/17 00:33 Quetiapine Fumarate (SEROquel) 50 mg tid ORAL 01/04/17 09:00 02/03/17 08:59 01/05/17 08:52 Sodium Chloride 1,000 ml @ 75 mls/hr [id number] IV 01/04/17 08:45 02/03/17 08:44 01/04/17 21:18 Tamsulosin HCl (Flomax) 0.4 mg BID ORAL 01/04/17 09:00 02/03/17 08:59 01/05/17 08:52 Temazepam (Restoril) 15 mg HSPRN PRN ORAL Insomnia 01/04/17 06:45 01/11/17 06:44 CATALINO MCKENZIE Jan 05, 2017 11:21
--- NOTE | 2017-01-05 11:55 | Diagnostic Imaging Report ---
Indication:Elevated Bun and Creatinine. Technique: Grayscale and duplex Doppler imaging of the kidneys performed. Comparison: None Findings: The size, contour, and echogenicity of both kidneys are within normal limits. The right kidney is 9.4 cm. Left kidney 10 cm in length. There is no hydronephrosis. The IVC is unremarkable. There is a mass at the base of the bladder that appears to be contiguous with the prostate gland. There is a moderate degree of shadowing in this location and imaging is somewhat poor. The prostate measures about 5.7 x 5.3 x 4.7 CM. Impression: Apparent mass at the base of the bladder likely on the basis of an enlarged prostate gland. Images are partially obscured and suboptimally evaluated. Suggest further clinical evaluation of the prostate gland. Unremarkable ultrasound kidneys.
[2017-01-05 12:01] VITALS: BP 132/73
[2017-01-05] MEDS: Piperacillin/Tazobactam 3.375 GM in NS 110 ML IVPB SCH ×2 (13:38→21:51)
--- NOTE | 2017-01-05 14:43 | General Progress Note ---
Assessment/Plan Status Narrative Cr lower Assessment/Plan status: Renal failure- Acute on chronic Hypotension on presentation Syncope / head laceration Plan: Slow hydrate monitor renal parameters avoid nephrotoxics adjust psych meds Subjective ROS Limited/Unobtainable: No Constitutional: Reports: malaise, weakness Allergies: Coded Allergies: ALPRAZOLAM (Verified Adverse Reaction, Intermediate, 01/30/16) slurred speech, unsteady gait, poor decision making Objective Last 24 Hour Vital Signs Date Time Temp Pulse Resp B/P (MAP) Pulse Ox O2 Delivery O2 Flow Rate FiO2 01/05/17 13:05 80 20 99 Nasal Cannula 2.0 28 01/05/17 13:00 79 20 98 Nasal Cannula 2.0 28 01/05/17 12:01 97.2 73 24 132/73 94 Nasal Cannula 3.0 01/05/17 11:49 68 01/05/17 09:00 75 77 80 01/05/17 08:00 70 01/05/17 08:00 97.9 75 23 113/56 96 Nasal Cannula 2.0 01/05/17 07:51 Nasal Cannula 2.0 28 01/05/17 07:51 94 Nasal Cannula 2.0 28 01/05/17 07:30 77 20 93 Nasal Cannula 2.0 28 01/05/17 07:25 78 20 90 Nasal Cannula 2.0 28 01/05/17 04:00 69 01/05/17 04:00 98.0 67 20 100/60 95 Nasal Cannula 2.0 01/05/17 01:33 74 20 93 Nasal Cannula 2.0 28 01/05/17 01:25 75 20 89 Nasal Cannula 2.0 28 01/05/17 00:00 97.2 70 20 113/66 90 Nasal Cannula 01/05/17 00:00 72 01/04/17 20:00 72 01/04/17 20:00 97.9 74 20 119/68 92 Nasal Cannula 01/04/17 19:40 67 20 98 Nasal Cannula 2.0 28 01/04/17 19:35 71 20 93 Nasal Cannula 2.0 28 01/04/17 19:34 Nasal Cannula 2.0 28 01/04/17 17:46 72 80 78 01/04/17 16:47 99.4 102 18 121/71 98 Room Air 01/04/17 15:59 68 Intake and Output 01/05/17 01/06/17 19:00 07:00 Output Total 375 ml Balance -375 ml Output Urine Total 375 ml Laboratory Tests 01/05/17 07:05: Urine Color Lynn, Urine Appearance Slightly cloudy, Urine pH 6, Urine Specific [place] 1.020, Urine Protein 1+H, Urine Glucose (UA) Negative, Urine Ketones Negative, Urine Occult Blood Negative, Urine Nitrite Negative, Urine Bilirubin Negative, Urine Ictotest Negative, Urine Urobilinogen 1H, Urine Leukocyte Esterase 1+H, Urine RBC 0-2H, Urine WBC 0-2, Urine Squamous Epithelial Cells Occasional, Urine Bacteria Few, Urine Mucus FewH, Urine Eosinophils None seen, Urine Random Sodium 79, Urine Potassium Timed 63 01/05/17 07:24: White Blood Count 8.2, Red Blood Count 3.56L, Hemoglobin 11.4L, Hematocrit 34.4L , Mean Corpuscular Volume 97, Mean Corpuscular Hemoglobin 31.9H, Mean Corpuscular Hemoglobin Concent 33.0, Red Cell Distribution Width 12.2, Platelet Count 257, Mean Platelet Volume 7.2, Neutrophils (%) (Auto) 78.0H, Lymphocytes ( %) (Auto) 13.6L, Monocytes (%) (Auto) 5.3, Eosinophils (%) (Auto) 2.7, Basophils (%) (Auto) 0.4, Differential Total Cells Counted 100, Neutrophils % ( Manual) 76H, Lymphocytes % (Manual) 16L, Monocytes % (Manual) 4, Eosinophils % ( Manual) 4H, Basophils % (Manual) 0, Band Neutrophils 0, Platelet Estimate Adequate, Platelet Morphology Normal, Clumped Platelets , Macrocytosis 1+, Tear Drop Cells 1+, Blister Cells 1+, Erythrocyte Sedimentation Rate 102H, Reticulocyte Count 1.9, Prothrombin Time 10.2, Prothromb Time International Ratio 1.0, Activated Partial Thromboplast Time 28, Sodium Level 138, Potassium Level 3.8, Chloride Level 101, Carbon Dioxide Level 25, Anion Gap 12, Blood Urea Nitrogen 28H, Creatinine 1.8H, Estimat Glomerular Filtration Rate 37.7, Glucose Level 127H, Hemoglobin A1c 5.0, Uric Acid 7.7H, Calcium Level 8.5L, Phosphorus Level 2.9, Magnesium Level 2.1, Iron Level 34L, Total Iron Binding Capacity 248L, Percent Iron Saturation 14L, Unsaturated Iron Binding 214, Total Bilirubin 0.6, Gamma Glutamyl Transpeptidase 26, Aspartate Amino Transf (AST/ SGOT) 17, Alanine Aminotransferase (ALT/SGPT) 14, Alkaline Phosphatase 104, Lactate Dehydrogenase 244H, Total Creatine Kinase 352H, C-Reactive Protein, Quantitative 8.5H, Pro-B-Type Natriuretic Peptide 103, Total Protein 6.7, Albumin 3.9, Globulin 2.8, Albumin/Globulin Ratio 1.3, Triglycerides Level 143, Cholesterol Level 201H, LDL Cholesterol 116H, HDL Cholesterol 56, Cholesterol/ HDL Ratio 3.6, Carcinoembryonic Antigen 1.2, Vitamin B12 Level 508, Folate [ Pending], Thyroid Stimulating Hormone (TSH) 1.070 01/05/17 07:45: Ferritin [Pending] Height (Feet): 5 Height (Inches): 9.00 Weight (Pounds): 246 General Appearance: no apparent distress Cardiovascular: normal rate Objective no change- no signs of CHF ISRRAEL SHARMA Jan 05, 2017 14:43
--- NOTE | 2017-01-05 14:57 | Cardiology Progress Note ---
Assessment/Plan Assessment/Plan 1. Posttussive syncope. 2. Cough and bronchospasm. 3. History of hypertension. 4. History of hyperlipidemia. 5. Bipolar disorder. 6. History of substance abuse, now sober for approximately 9 months. 7. Renal insufficiency. ivf to dc orthosttic vital neg on 2 occasion echo pending avoid antihypertensives for now bp is fine off med tele neg Subjective Cardiovascular: Denies: chest pain, lightheadedness, palpitations Respiratory: Reports: cough, shortness of breath, wheezing Gastrointestinal/Abdominal: Denies: abdominal pain Genitourinary: Denies: burning Objective Last 24 Hour Vital Signs Date Time Temp Pulse Resp B/P (MAP) Pulse Ox O2 Delivery O2 Flow Rate FiO2 01/05/17 13:05 80 20 99 Nasal Cannula 2.0 28 01/05/17 13:00 79 20 98 Nasal Cannula 2.0 28 01/05/17 12:01 97.2 73 24 132/73 94 Nasal Cannula 3.0 01/05/17 11:49 68 01/05/17 09:00 75 77 80 01/05/17 08:00 70 01/05/17 08:00 97.9 75 23 113/56 96 Nasal Cannula 2.0 01/05/17 07:51 Nasal Cannula 2.0 28 01/05/17 07:51 94 Nasal Cannula 2.0 28 01/05/17 07:30 77 20 93 Nasal Cannula 2.0 28 01/05/17 07:25 78 20 90 Nasal Cannula 2.0 28 01/05/17 04:00 69 01/05/17 04:00 98.0 67 20 100/60 95 Nasal Cannula 2.0 01/05/17 01:33 74 20 93 Nasal Cannula 2.0 28 01/05/17 01:25 75 20 89 Nasal Cannula 2.0 28 01/05/17 00:00 97.2 70 20 113/66 90 Nasal Cannula 01/05/17 00:00 72 01/04/17 20:00 72 01/04/17 20:00 97.9 74 20 119/68 92 Nasal Cannula 01/04/17 19:40 67 20 98 Nasal Cannula 2.0 28 01/04/17 19:35 71 20 93 Nasal Cannula 2.0 28 01/04/17 19:34 Nasal Cannula 2.0 28 01/04/17 17:46 72 80 78 01/04/17 16:47 99.4 102 18 121/71 98 Room Air 01/04/17 15:59 68 General Appearance: alert Neck: no JVD Cardiovascular: normal rate, regular rhythm Respiratory/Chest: rhonchi - bilaterally, expiratory wheezing Abdomen: normal bowel sounds, non tender, soft Extremities: no swelling Intake and Output 01/05/17 01/06/17 19:00 07:00 Output Total 375 ml Balance -375 ml Output Urine Total 375 ml Laboratory Tests Test 01/05/17 07:05 01/05/17 07:24 01/05/17 07:45 Urine Color [place] Urine Appearance Slightly cloudy Urine pH 6 (4.5-8.0) Urine Specific [place] 1.020 (1.005-1.035) Urine Protein 1+ (NEGATIVE) H Urine Glucose (UA) Negative (NEGATIVE) Urine Ketones Negative (NEGATIVE) Urine Occult Blood Negative (NEGATIVE) Urine Nitrite Negative (NEGATIVE) Urine Bilirubin Negative (NEGATIVE) Urine Ictotest Negative Urine Urobilinogen 1 MG/DL (0.0-1.0) H Urine Leukocyte Esterase 1+ (NEGATIVE) H Urine RBC 0-2 /HPF (0 - 0) H Urine WBC 0-2 /HPF (0 - 0) Urine Squamous Epithelial Cells Occasional /LPF Urine Bacteria Few /HPF (NONE) Urine Mucus Few /LPF (NONE/OCC) H Urine Eosinophils None seen Urine Random Sodium 79 mmol/L Urine Potassium Timed 63 mmol/L White Blood Count 8.2 K/UL (4.8-10.8) Red Blood Count 3.56 M/UL (4.70-6.10) L Hemoglobin 11.4 G/DL (14.2-18.0) L Hematocrit 34.4 % (42.0-52.0) L Mean Corpuscular Volume 97 FL (80-99) Mean Corpuscular Hemoglobin 31.9 PG (27.0-31.0) H Mean Corpuscular Hemoglobin Concent 33.0 G/DL (32.0-36.0) Red Cell Distribution Width 12.2 % (11.6-14.8) Platelet Count 257 K/UL (150-450) Mean Platelet Volume 7.2 FL (6.5-10.1) Neutrophils (%) (Auto) 78.0 % (45.0-75.0) H Lymphocytes (%) (Auto) 13.6 % (20.0-45.0) L Monocytes (%) (Auto) 5.3 % (1.0-10.0) Eosinophils (%) (Auto) 2.7 % (0.0-3.0) Basophils (%) (Auto) 0.4 % (0.0-2.0) Differential Total Cells Counted 100 Neutrophils % (Manual) 76 % (45-75) H Lymphocytes % (Manual) 16 % (20-45) L Monocytes % (Manual) 4 % (1-10) Eosinophils % (Manual) 4 % (0-3) H Basophils % (Manual) 0 % (0-2) Band Neutrophils 0 % (0-8) Platelet Estimate Adequate Platelet Morphology Normal Clumped Platelets Macrocytosis 1+ Tear Drop Cells 1+ Blister Cells 1+ Erythrocyte Sedimentation Rate 102 MM/HR (0-20) H Reticulocyte Count 1.9 % (0.0-2.0) Prothrombin Time 10.2 SEC (9.30-11.50) Prothromb Time International Ratio 1.0 (0.9-1.1) Activated Partial Thromboplast Time 28 SEC (23-33) Sodium Level 138 mEQ/L (135-145) Potassium Level 3.8 mEQ/L (3.4-4.9) Chloride Level 101 mEQ/L (98-107) Carbon Dioxide Level 25 mEQ/L (20-30) Anion Gap 12 (5-15) Blood Urea Nitrogen 28 mg/dL (7-23) H Creatinine 1.8 mg/dL (0.7-1.2) H Estimat Glomerular Filtration Rate 37.7 mL/min (>60) Glucose Level 127 mg/dL (74-106) H Hemoglobin A1c 5.0 % (< 6.0) Uric Acid 7.7 mg/dL (3.0-7.5) H Calcium Level 8.5 mg/dL (8.6-10.2) L Phosphorus Level 2.9 mg/dL (2.5-4.8) Magnesium Level 2.1 mg/dL (1.7-2.5) Iron Level 34 ug/dL (59-158) L Total Iron Binding Capacity 248 ug/dL (250-400) L Percent Iron Saturation 14 % (15-50) L Unsaturated Iron Binding 214 ug/dL (112-346) Total Bilirubin 0.6 mg/dL (0.0-1.2) Gamma Glutamyl Transpeptidase 26 U/L (8-61) Aspartate Amino Transf (AST/SGOT) 17 U/L (5-40) Alanine Aminotransferase (ALT/SGPT) 14 U/L (3-41) Alkaline Phosphatase 104 U/L (40-129) Lactate Dehydrogenase 244 U/L (135-230) H Total Creatine Kinase 352 U/L (38-174) H C-Reactive Protein, Quantitative 8.5 mg/dL (< 0.5) H Pro-B-Type Natriuretic Peptide 103 pg/mL (0-125) Total Protein 6.7 g/dL (6.6-8.7) Albumin 3.9 g/dL (3.5-5.2) Globulin 2.8 g/dL Albumin/Globulin Ratio 1.3 (1.0-2.7) Triglycerides Level 143 mg/dL (< 150) Cholesterol Level 201 mg/dL (< 200) H LDL Cholesterol 116 mg/dL (60-99) H HDL Cholesterol 56 mg/dL (> 60) Cholesterol/HDL Ratio 3.6 (3.3-4.4) Carcinoembryonic Antigen 1.2 ng/mL Vitamin B12 Level 508 pg/mL (211-946) Folate Pending Thyroid Stimulating Hormone (TSH) 1.070 uIU/mL (0.300-4.500) Ferritin 114 ng/mL (10-230) Microbiology Date/Time Source Procedure Growth Status 01/03/17 21:25 Blood Blood Culture - Preliminary NO GROWTH AFTER 24 HOURS Resulted 01/03/17 21:15 Blood Blood Culture - Preliminary NO GROWTH AFTER 24 HOURS Resulted 01/04/17 12:45 Sputum Gram Stain - Final Resulted 01/04/17 12:45 Sputum Sputum Culture - Preliminary NORMAL UPPER RESPIRATORY JEFF AT 24 ... Resulted MICHOACANO BARBER Jan 05, 2017 14:57
--- NOTE | 2017-01-05 15:54 | Cardiology Report ---
APPROVED REPORT EKG Measurement Heart [id number] MD 194P44 [id number] Normal sinus rhythm Normal ECG
[2017-01-05 16:00] VITALS: BP 121/74
[2017-01-05 20:00] VITALS: BP 131/64
[2017-01-05] MEDS: Atorvastatin 80mg tab ORAL SCH (21:50)
--- NOTE | 2017-01-05 23:08 | Diagnostic Imaging Report ---
APPROVED REPORT CPT Code: 27850 Vascular Symptoms CVA/TIA: CAROTID (BILATERAL) - Imaging reveals no significant plaque within the right and left extracranial carotid arteries. The Doppler spectral flow analysis is within normal limits throughout the extracranial carotid arteries bilaterally. VERTEBRAL- The vertebral arteries are within normal limits.
[2017-01-06] VITALS: BP 119/73
[2017-01-06] MEDS: DuoNeb 0.5-3(2.5)mg/3ml neb HHN SCH ×4 (01:51→20:00)
[2017-01-06 02:35] LABS: APPEARANCE,URINE CLEAR; KETONES,URINE NEGATIVE (NEGATIVE); LEUKOCYTE ESTERASE ,URINE 1+ (NEGATIVE); NITRITE,URINE NEGATIVE (NEGATIVE); PH,URINE 6 (4.5-8.0); PROTEIN,URINE NEGATIVE (NEGATIVE); UROBILINOGEN,URINE NORMAL MG/DL (0.0-1.0)
[2017-01-06 03:16] LABS: RBC,URINE 0 /HPF (0 - 0); SQUAMOUS EPITHELIAL CELL,UR FEW /LPF (NONE/OCC)
[2017-01-06 04:00] VITALS: BP 134/74
[2017-01-06] MEDS: Piperacillin/Tazobactam 3.375 GM in NS 110 ML IVPB SCH ×3 (05:45→21:56)
[2017-01-06] MEDS: Liothyronine 5mcg tab ORAL SCH (05:49)
[2017-01-06 07:36] LABS: ALBUMIN/GLOBULIN RATIO 1.8 (1.0-2.7); CALCIUM 10.3 mg/dL (8.6-10.2); CREATININE 1.6 mg/dL (0.7-1.2); GLOMERULAR FILTRATION RATE 43.2 mL/min (>60); MAGNESIUM 2.6 mg/dL (1.7-2.5); PHOSPHORUS 3.3 mg/dL (2.5-4.8); POTASSIUM 4.2 mEQ/L (3.4-4.9); URIC ACID 6.3 mg/dL (3.0-7.5)
[2017-01-06 08:00] VITALS: BP 131/71
[2017-01-06] MEDS: Tamsulosin 0.4mg cap ORAL SCH ×2 (09:29→17:23)
[2017-01-06] MEDS: BuPROPion SR 150mg tab ORAL SCH (09:29)
[2017-01-06] MEDS: Nortriptyline 25mg cap ORAL SCH ×2 (09:30→21:56)
[2017-01-06] MEDS: Heparin 5000 units/ml inj SUBQ SCH ×2 (09:33→21:57)
--- NOTE | 2017-01-06 11:16 | General Progress Note ---
Assessment/Plan Status: stable - from renal stand Assessment/Plan status: Renal failure- Acute on chronic- Cr down to 1.6 Hypotension on presentation Syncope / head laceration Plan: Slow hydrate monitor renal parameters avoid nephrotoxics adjust psych meds Subjective ROS Limited/Unobtainable: No Constitutional: Reports: other - getting stronger Allergies: Coded Allergies: ALPRAZOLAM (Verified Adverse Reaction, Intermediate, 01/30/16) slurred speech, unsteady gait, poor decision making Objective Last 24 Hour Vital Signs Date Time Temp Pulse Resp B/P (MAP) Pulse Ox O2 Delivery O2 Flow Rate FiO2 01/06/17 09:00 76 81 84 01/06/17 08:00 71 01/06/17 08:00 97.5 69 20 131/71 99 Nasal Cannula 01/06/17 07:52 Nasal Cannula 2.0 28 01/06/17 07:51 83 20 99 Nasal Cannula 2.0 28 01/06/17 07:37 79 20 94 Nasal Cannula 2.0 28 01/06/17 07:35 94 Nasal Cannula 2.0 28 01/06/17 04:00 65 01/06/17 04:00 97.3 66 20 134/74 95 Room Air 01/06/17 01:49 70 20 98 Nasal Cannula 2.0 28 01/06/17 01:49 74 20 99 Nasal Cannula 2.0 28 01/06/17 00:00 65 01/06/17 00:00 97.0 69 23 119/73 90 Room Air 01/06/17 00:00 53 57 01/05/17 20:00 97.0 69 20 131/64 94 Nasal Cannula 2.0 01/05/17 20:00 69 01/05/17 19:40 72 20 98 Nasal Cannula 2.0 28 01/05/17 19:30 Nasal Cannula 2.0 28 01/05/17 19:30 68 20 97 Nasal Cannula 2.0 28 01/05/17 19:30 97 Nasal Cannula 2.0 28 01/05/17 16:00 97.7 51 23 121/74 98 Room Air 01/05/17 16:00 85 01/05/17 13:05 80 20 99 Nasal Cannula 2.0 28 01/05/17 13:00 79 20 98 Nasal Cannula 2.0 28 01/05/17 12:01 97.2 73 24 132/73 94 Nasal Cannula 3.0 01/05/17 11:49 68 Laboratory Tests 01/06/17 01:30: Urine Color Pale yellow, Urine Appearance Clear, Urine pH 6, Urine Specific [place] 1.015, Urine Protein Negative, Urine Glucose (UA) Negative, Urine Ketones Negative, Urine Occult Blood Negative, Urine Nitrite Negative, Urine Bilirubin Negative, Urine Urobilinogen Normal, Urine Leukocyte Esterase 1+H, Urine RBC 0, Urine WBC 5-10H, Urine Squamous Epithelial Cells Few, Urine Bacteria None, Urine Eosinophils None seen, Urine Random Sodium 67, Urine Potassium Timed 41 01/06/17 06:10: Sodium Level 136, Potassium Level 4.2, Chloride Level 101, Carbon Dioxide Level 25, Anion Gap 10, Blood Urea Nitrogen 20, Creatinine 1.6H, Estimat Glomerular Filtration Rate 43.2, Glucose Level 119H, Uric Acid 6.3, Calcium Level 10.3#H, Phosphorus Level 3.3, Magnesium Level 2.6H, Total Bilirubin 0.6, Aspartate Amino Transf (AST/SGOT) 16, Alanine Aminotransferase (ALT/SGPT) 13, Alkaline Phosphatase 102, Total Protein 6.0L, Albumin 3.9, Globulin 2.1, Albumin/ Globulin Ratio 1.8 Height (Feet): 5 Height (Inches): 9.00 Weight (Pounds): 246 General Appearance: no apparent distress Objective no change- no signs of CHF ISRRAEL SHARMA Jan 06, 2017 11:16
[2017-01-06 12:00] VITALS: BP 127/75
--- NOTE | 2017-01-06 13:33 | Pulmonology Progress Note ---
Assessment/Plan Problems: (1) Acute encephalopathy (2) Syncope (3) ATN (acute tubular necrosis) (4) Hypotension (5) Psychiatric diagnosis Assessment/Plan add zosyn for presumptive uti and bronchitis renal w/u in progress bp still borderline low all reviewed awaiting psych evaluation as well urology called for abnormal bladder US PSa ordered med/surg Subjective ROS Limited/Unobtainable: No Constitutional: Reports: no symptoms HEENT: Repors: no symptoms Respiratory: Reports: no symptoms Allergies: Coded Allergies: ALPRAZOLAM (Verified Adverse Reaction, Intermediate, 01/30/16) slurred speech, unsteady gait, poor decision making Objective Last 24 Hour Vital Signs Date Time Temp Pulse Resp B/P (MAP) Pulse Ox O2 Delivery O2 Flow Rate FiO2 01/06/17 13:11 77 18 99 Nasal Cannula 2.0 28 01/06/17 12:55 72 18 98 Nasal Cannula 2.0 28 01/06/17 12:00 98.5 73 20 127/75 98 Nasal Cannula 01/06/17 09:00 76 81 84 01/06/17 08:00 71 01/06/17 08:00 97.5 69 20 131/71 99 Nasal Cannula 01/06/17 07:52 Nasal Cannula 2.0 28 01/06/17 07:51 83 20 99 Nasal Cannula 2.0 28 01/06/17 07:37 79 20 94 Nasal Cannula 2.0 28 01/06/17 07:35 94 Nasal Cannula 2.0 28 01/06/17 04:00 65 01/06/17 04:00 97.3 66 20 134/74 95 Room Air 01/06/17 01:49 70 20 98 Nasal Cannula 2.0 28 01/06/17 01:49 74 20 99 Nasal Cannula 2.0 28 01/06/17 00:00 65 01/06/17 00:00 97.0 69 23 119/73 90 Room Air 01/06/17 00:00 53 57 01/05/17 20:00 97.0 69 20 131/64 94 Nasal Cannula 2.0 01/05/17 20:00 69 01/05/17 19:40 72 20 98 Nasal Cannula 2.0 28 01/05/17 19:30 Nasal Cannula 2.0 28 01/05/17 19:30 68 20 97 Nasal Cannula 2.0 28 01/05/17 19:30 97 Nasal Cannula 2.0 28 01/05/17 16:00 97.7 51 23 121/74 98 Room Air 01/05/17 16:00 85 Intake and Output 01/06/17 01/07/17 19:00 07:00 Intake Total 440 ml Balance 440 ml Intake Oral 440 ml General Appearance: WD/WN HEENT: normocephalic, atraumatic Respiratory/Chest: chest wall non-tender, lungs clear Cardiovascular: normal peripheral pulses, normal rate Abdomen: soft, non tender, non distended Genitourinary: normal external genitalia Extremities: no clubbing Skin: no lesions Microbiology Date/Time Source Procedure Growth Status 01/03/17 21:25 Blood Blood Culture - Preliminary NO GROWTH AFTER 48 HOURS Resulted 01/03/17 21:15 Blood Blood Culture - Preliminary NO GROWTH AFTER 48 HOURS Resulted 01/04/17 12:45 Sputum Gram Stain - Final Complete 01/04/17 12:45 Sputum Sputum Culture - Final NORMAL UPPER RESPIRATORY JEFF PRESENT Complete 01/03/17 23:30 Nasal Nares MRSA Culture - Final NO METHICILLIN RESISTANT STAPH AUREUS... Complete 01/03/17 23:30 Rectum VRE Culture - Final NO VANCOMYCIN RESISTANT ENTEROCOCCUS ... Complete Laboratory Tests 01/06/17 01:30: Urine Color Pale yellow, Urine Appearance Clear, Urine pH 6, Urine Specific [place] 1.015, Urine Protein Negative, Urine Glucose (UA) Negative, Urine Ketones Negative, Urine Occult Blood Negative, Urine Nitrite Negative, Urine Bilirubin Negative, Urine Urobilinogen Normal, Urine Leukocyte Esterase 1+H, Urine RBC 0, Urine WBC 5-10H, Urine Squamous Epithelial Cells Few, Urine Bacteria None, Urine Eosinophils None seen, Urine Random Sodium 67, Urine Potassium Timed 41 01/06/17 06:10: Sodium Level 136, Potassium Level 4.2, Chloride Level 101, Carbon Dioxide Level 25, Anion Gap 10, Blood Urea Nitrogen 20, Creatinine 1.6H, Estimat Glomerular Filtration Rate 43.2, Glucose Level 119H, Uric Acid 6.3, Calcium Level 10.3#H, Phosphorus Level 3.3, Magnesium Level 2.6H, Total Bilirubin 0.6, Aspartate Amino Transf (AST/SGOT) 16, Alanine Aminotransferase (ALT/SGPT) 13, Alkaline Phosphatase 102, Total Protein 6.0L, Albumin 3.9, Globulin 2.1, Albumin/ Globulin Ratio 1.8 Current Medications Medications (Trade) Dose Ordered Sig/Ira Route PRN Reason Start Time Stop Time Status Last Admin Dose Admin Acetaminophen (Tylenol) 650 mg Q4H PRN ORAL fever 01/04/17 06:45 02/03/17 06:44 Albuterol/ Ipratropium (DuoNeb 0.5-3(2.5)mg/3ml) 3 ml Q4H PRN HHN Shortness of Breath 01/04/17 06:45 01/09/17 06:44 Albuterol/ Ipratropium (DuoNeb 0.5-3(2.5)mg/3ml) 3 ml Q6HRT HHN 01/04/17 07:00 01/09/17 06:59 01/06/17 13:06 Atorvastatin Calcium (Lipitor) 80 mg BEDTIME ORAL 01/04/17 21:00 02/03/17 20:59 01/05/17 21:50 Bupropion HCl (Wellbutrin SR) 150 mg DAILY ORAL 01/04/17 09:00 02/03/17 08:59 01/06/17 09:29 Clonidine HCl (Catapres) 0.1 mg Q4H PRN ORAL For High Blood Pressure 01/04/17 06:45 02/03/17 06:44 Dextrose (Dextrose 50%) STAT PRN IV Hypoglycemia 01/04/17 06:45 02/03/17 06:44 Escitalopram Oxalate (Lexapro) 40 mg DAILY ORAL 01/04/17 09:00 02/03/17 08:59 01/06/17 09:28 Gabapentin (Neurontin) 300 mg DAILY ORAL 01/04/17 09:00 02/03/17 08:59 01/06/17 09:28 Heparin Sodium (Porcine) (Heparin 5000 units/ml) 5,000 units EVERY 12 HOURS SUBQ 01/04/17 09:00 02/03/17 08:59 01/06/17 09:33 Liothyronine Sodium (Cytomel) 10 mcg DAILY@0630 ORAL 01/05/17 06:30 02/04/17 06:29 01/06/17 05:49 Lorazepam (Ativan 2mg/ml 1ml) 0.5 mg Q4H PRN IV For Anxiety 01/04/17 06:45 01/11/17 06:44 Morphine Sulfate (Morphine Sulfate) 1 mg Q4H PRN IVP For Pain 7-10 01/04/17 06:45 01/11/17 06:44 01/05/17 04:26 Nitroglycerin (Ntg) 0.4 mg Q5M X 3 DOSES PRN SL Prn Chest Pain 01/04/17 06:45 02/03/17 06:44 Nortriptyline HCl (Pamelor) 25 mg Q12HR ORAL 01/04/17 21:00 02/03/17 08:59 01/06/17 09:30 Ondansetron HCl (Zofran) 4 mg Q6H PRN IVP Nausea & Vomiting 01/04/17 06:45 02/03/17 06:44 Piperacillin Sod/ Tazobactam Sod 3.375 gm/Sodium Chloride 110 ml @ 27.5 mls/hr EVERY 8 HOURS IVPB 01/05/17 12:00 01/12/17 11:59 01/06/17 05:45 Polyethylene Glycol (Miralax) 17 gm HSPRN PRN ORAL Constipation 01/04/17 06:45 02/03/17 06:44 Promethazine HCl/ Codeine (Phenergan with Codeine) 5 ml Q4H PRN ORAL For Cough 01/04/17 06:45 02/03/17 06:44 01/05/17 00:33 Quetiapine Fumarate (SEROquel) 50 mg tid ORAL 01/04/17 09:00 02/03/17 08:59 01/06/17 09:29 Sodium Chloride 1,000 ml @ 50 mls/hr Q20H IV 01/06/17 08:30 02/05/17 08:29 01/06/17 09:30 Tamsulosin HCl (Flomax) 0.4 mg BID ORAL 01/04/17 09:00 02/03/17 08:59 01/06/17 09:29 Temazepam (Restoril) 15 mg HSPRN PRN ORAL Insomnia 01/04/17 06:45 01/11/17 06:44 CATALINO MCKENZIE Jan 06, 2017 13:33
[2017-01-06 14:44] LABS: OTHERS PATHOLOGIST COMMENT
[2017-01-06] MEDS: Morphine Sulfate 2mg/ml Inj IVP PRN (15:14)
[2017-01-06 16:00] VITALS: BP 121/70
--- NOTE | 2017-01-06 16:09 | Cardiology Report ---
APPROVED REPORT EXAM: Two-dimensional and M-mode echocardiogram with Doppler and color Doppler. INDICATION Left ventricular function M-Mode DIMENSIONS IVSd0.8 (0.7-1.1cm)Left Atrium (MM)3.6 (1.6-4.0cm) LVDd4.2 (3.5-5.6cm)Aortic Root3.3 (2.0-3.7cm) PWd0.9 (0.7-1.1cm)Aortic Cusp Exc.1.8 (1.5-2.0cm) LVDs2.2 (2.5-4.0cm) PWs1.0 cm Normal left ventricular chamber size, systolic function and wall motion. Left ventricular ejection fraction estimated to be 60-65%. Mild left ventricular hypertrophy. Small anterior hemodynamically insignificant pericardial effusion. Right cardiac chamber sizes are within normal limits. Mild left atrial enlargement by 2D. Focal aortic valve sclerosis with adequate cusp excursion. Normal mitral valve leaflets with normal excursion. Mild mitral annulus and aortic root calcification. Pulmonic valve not well visualized. Normal tricuspid valve structure. Pulmonic regurgitation present. IVC is normal in size with physiological collapse. A color flow and spectral Doppler study was performed and revealed: No mitral regurgitation. Mitral diastolic velocities suggest reduced left ventricular relaxation c/w diastolic dysfunction grade 1. No tricuspid regurgitation. Tricuspid systolic velocities suggests peak right ventricular systolic pressure of 30 mmHg
--- NOTE | 2017-01-06 19:05 | Cardiology Report ---
APPROVED REPORT EKG Measurement Heart [id number] MI 196P70 [id number] Normal sinus rhythm Normal ECG
[2017-01-06 20:52] VITALS: BP 131/74
[2017-01-06] MEDS: Promethazine/Codeine 5ml UD ORAL PRN (21:55)
[2017-01-06] MEDS: Atorvastatin 80mg tab ORAL SCH (21:56)
--- NOTE | 2017-01-06 23:14 | Consultation ---
History of Present Illness General Date patient seen: Jan 04, 2017 Chief Complaint: Syncope Present Illness HPI patient is a 66-year-old male with past medical history of psychiatric disorder , bipolar, hypertension, and hypercholesterolemia. The patient was brought in by paramedics to [facility] because of altered level of consciousness and acute encephalopathy, syncope after sneezing. during the eval the pt stated that he is from [employer] [facility] and seeing joaquin. the pt stated that he fell and has been dehydrated the pt didnt endorse manic depressive or psychotic sxs Allergies: Coded Allergies: ALPRAZOLAM (Verified Adverse Reaction, Intermediate, 01/30/16) slurred speech, unsteady gait, poor decision making Medication History Scheduled Amlodipine Besylate* (Amlodipine Besylate*), 5 MG ORAL DAILY, (Reported) Aspirin* (Aspir 81*), 81 MG ORAL DAILY, (Reported) Atorvastatin Calcium* (Atorvastatin Calcium*), 80 MG ORAL BEDTIME, (Reported) Azithromycin* (Zithromax*), 250 MG ORAL DAILY, (Reported) Bupropion Sr* (Wellbutrin Sr*), 150 MG ORAL daily, (Reported) Escitalopram Oxalate* (Lexapro*), 40 MG ORAL DAILY, (Reported) Gabapentin* (Gabapentin*), 300 MG ORAL DAILY, (Reported) Levothyroxine Sodium* (Levothyroxine Sodium*), 10 MCG ORAL DAILY, (Reported) Liothyronine Sodium* (Cytomel*), 5 MCG ORAL BID, (Reported) Losartan Potassium* (Losartan Potassium*), 100 MG ORAL DAILY, (Reported) Nortriptyline Hcl* (Pamelor*), 25 MG ORAL bid, (Reported) Quetiapine Fumarate* (Seroquel*), 50 MG ORAL tid, (Reported) Scheduled PRN Zolpidem Tartrate* (Ambien*), 10 MG ORAL HS PRN for Insomnia, (Reported) Patient History History Provided By: Patient, Medical Record, PMD Healthcare decision maker Resuscitation status Full Code Advanced Directive on File No Past Medical/Surgical History Past Medical/Surgical History: (1) Rib sprain (2) Encounter for generalized patient complaints (3) Head trauma (4) Laceration of head (5) Dehydration (6) Acute on chronic renal insufficiency (7) Syncope (8) ATN (acute tubular necrosis) (9) Hypotension (10) Psychiatric diagnosis (11) Acute encephalopathy Review of Systems Constitutional: Reports: malaise, weakness Psychiatric: Reports: prior hx, anxiety, depressed feelings, emotional problems Physical Exam General Appearance: no apparent distress, alert, obese Neurologic: alert, oriented x 3, responsive, depressed affect Last 24 Hour Vital Signs Date Time Temp Pulse Resp B/P (MAP) Pulse Ox O2 Delivery O2 Flow Rate FiO2 01/06/17 20:52 97.3 70 20 131/74 98 Nasal Cannula 01/06/17 20:00 70 20 99 Nasal Cannula 2.0 28 01/06/17 20:00 67 01/06/17 19:45 Nasal Cannula 2.0 28 01/06/17 19:45 65 20 98 Nasal Cannula 2.0 28 01/06/17 19:45 98 Nasal Cannula 2.0 28 01/06/17 16:00 98.1 78 20 121/70 98 Nasal Cannula 01/06/17 16:00 71 01/06/17 15:44 98.5 01/06/17 13:11 77 18 99 Nasal Cannula 2.0 28 01/06/17 12:55 72 18 98 Nasal Cannula 2.0 28 01/06/17 12:00 98.5 73 20 127/75 98 Nasal Cannula 01/06/17 12:00 73 01/06/17 09:00 76 81 84 01/06/17 08:00 71 01/06/17 08:00 97.5 69 20 131/71 99 Nasal Cannula 01/06/17 07:52 Nasal Cannula 2.0 28 01/06/17 07:51 83 20 99 Nasal Cannula 2.0 28 01/06/17 07:37 79 20 94 Nasal Cannula 2.0 28 01/06/17 07:35 94 Nasal Cannula 2.0 28 01/06/17 04:00 65 01/06/17 04:00 97.3 66 20 134/74 95 Room Air 01/06/17 01:49 70 20 98 Nasal Cannula 2.0 28 01/06/17 01:49 74 20 99 Nasal Cannula 2.0 28 01/06/17 00:00 65 01/06/17 00:00 97.0 69 23 119/73 90 Room Air 01/06/17 00:00 53 57 Intake and Output 01/06/17 01/07/17 19:00 07:00 Intake Total 1005.0 ml Output Total 600 ml Balance 405.0 ml Intake Oral 640 ml IV Total 365.0 ml Output Urine Total 600 ml # Voids 1 Laboratory Tests Test 01/06/17 01:30 01/06/17 06:10 Urine Color Pale yellow Urine Appearance Clear Urine pH 6 (4.5-8.0) Urine Specific [place] 1.015 (1.005-1.035) Urine Protein Negative (NEGATIVE) Urine Glucose (UA) Negative (NEGATIVE) Urine Ketones Negative (NEGATIVE) Urine Occult Blood Negative (NEGATIVE) Urine Nitrite Negative (NEGATIVE) Urine Bilirubin Negative (NEGATIVE) Urine Urobilinogen Normal MG/DL (0.0-1.0) Urine Leukocyte Esterase 1+ (NEGATIVE) H Urine RBC 0 /HPF (0 - 0) Urine WBC 5-10 /HPF (0 - 0) H Urine Squamous Epithelial Cells Few /LPF (NONE/OCC) Urine Bacteria None /HPF (NONE) Urine Eosinophils None seen Urine Random Sodium 67 mmol/L Urine Potassium Timed 41 mmol/L Sodium Level 136 mEQ/L (135-145) Potassium Level 4.2 mEQ/L (3.4-4.9) Chloride Level 101 mEQ/L (98-107) Carbon Dioxide Level 25 mEQ/L (20-30) Anion Gap 10 (5-15) Blood Urea Nitrogen 20 mg/dL (7-23) Creatinine 1.6 mg/dL (0.7-1.2) H Estimat Glomerular Filtration Rate 43.2 mL/min (>60) Glucose Level 119 mg/dL (74-106) H Uric Acid 6.3 mg/dL (3.0-7.5) Calcium Level 10.3 mg/dL (8.6-10.2) #H Phosphorus Level 3.3 mg/dL (2.5-4.8) Magnesium Level 2.6 mg/dL (1.7-2.5) H Total Bilirubin 0.6 mg/dL (0.0-1.2) Aspartate Amino Transf (AST/SGOT) 16 U/L (5-40) Alanine Aminotransferase (ALT/SGPT) 13 U/L (3-41) Alkaline Phosphatase 102 U/L (40-129) Total Protein 6.0 g/dL (6.6-8.7) L Albumin 3.9 g/dL (3.5-5.2) Globulin 2.1 g/dL Albumin/Globulin Ratio 1.8 (1.0-2.7) Carcinoembryonic Antigen 1.1 ng/mL Free Prostate Specific Antigen Pending Percent Free Prostate Specific Ag Pending Prostate Specific Antigen Total Pending Height (Feet): 5 Height (Inches): 9.00 Weight (Pounds): 246 Medications Current Medications Medications (Trade) Dose Ordered Sig/Ira Route PRN Reason Start Time Stop Time Status Last Admin Dose Admin Acetaminophen (Tylenol) 650 mg Q4H PRN ORAL fever 01/04/17 06:45 02/03/17 06:44 Albuterol/ Ipratropium (DuoNeb 0.5-3(2.5)mg/3ml) 3 ml Q4H PRN HHN Shortness of Breath 01/04/17 06:45 01/09/17 06:44 Albuterol/ Ipratropium (DuoNeb 0.5-3(2.5)mg/3ml) 3 ml Q6HRT HHN 01/04/17 07:00 01/09/17 06:59 01/06/17 20:00 Atorvastatin Calcium (Lipitor) 80 mg BEDTIME ORAL 01/04/17 21:00 02/03/17 20:59 01/06/17 21:56 Bupropion HCl (Wellbutrin SR) 150 mg DAILY ORAL 01/04/17 09:00 02/03/17 08:59 01/06/17 09:29 Clonidine HCl (Catapres) 0.1 mg Q4H PRN ORAL For High Blood Pressure 01/04/17 06:45 02/03/17 06:44 Dextrose (Dextrose 50%) STAT PRN IV Hypoglycemia 01/04/17 06:45 02/03/17 06:44 Escitalopram Oxalate (Lexapro) 40 mg DAILY ORAL 01/04/17 09:00 02/03/17 08:59 01/06/17 09:28 Gabapentin (Neurontin) 300 mg DAILY ORAL 01/04/17 09:00 02/03/17 08:59 01/06/17 09:28 Heparin Sodium (Porcine) (Heparin 5000 units/ml) 5,000 units EVERY 12 HOURS SUBQ 01/04/17 09:00 02/03/17 08:59 01/06/17 21:57 Liothyronine Sodium (Cytomel) 10 mcg DAILY@0630 ORAL 01/05/17 06:30 02/04/17 06:29 01/06/17 05:49 Lorazepam (Ativan 2mg/ml 1ml) 0.5 mg Q4H PRN IV For Anxiety 01/04/17 06:45 01/11/17 06:44 Morphine Sulfate (Morphine Sulfate) 1 mg Q4H PRN IVP For Pain 7-10 01/04/17 06:45 01/11/17 06:44 01/06/17 15:14 Nitroglycerin (Ntg) 0.4 mg Q5M X 3 DOSES PRN SL Prn Chest Pain 01/04/17 06:45 02/03/17 06:44 Nortriptyline HCl (Pamelor) 25 mg Q12HR ORAL 01/04/17 21:00 02/03/17 08:59 01/06/17 21:56 Ondansetron HCl (Zofran) 4 mg Q6H PRN IVP Nausea & Vomiting 01/04/17 06:45 02/03/17 06:44 Piperacillin Sod/ Tazobactam Sod 3.375 gm/Sodium Chloride 110 ml @ 27.5 mls/hr EVERY 8 HOURS IVPB 01/05/17 12:00 01/12/17 11:59 01/06/17 21:56 Polyethylene Glycol (Miralax) 17 gm HSPRN PRN ORAL Constipation 01/04/17 06:45 02/03/17 06:44 Promethazine HCl/ Codeine (Phenergan with Codeine) 5 ml Q4H PRN ORAL For Cough 01/04/17 06:45 02/03/17 06:44 01/06/17 21:55 Quetiapine Fumarate (SEROquel) 50 mg tid ORAL 01/04/17 09:00 02/03/17 08:59 01/06/17 17:23 Sodium Chloride 1,000 ml @ 50 mls/hr Q20H IV 01/06/17 08:30 02/05/17 08:29 01/06/17 09:30 Tamsulosin HCl (Flomax) 0.4 mg BID ORAL 01/04/17 09:00 02/03/17 08:59 01/06/17 17:23 Temazepam (Restoril) 15 mg HSPRN PRN ORAL Insomnia 01/04/17 06:45 01/11/17 06:44 Assessment/Plan Status: doing well, stable Assessment/Plan MDD cont current meds Tyler Sage M.D. Jan 06, 2017 23:14
--- NOTE | 2017-01-06 23:14 | General Progress Note ---
Assessment/Plan Status: stable, progressing Subjective Date patient seen: Jan 05, 2017 Neurologic/Psychiatric: Reports: anxiety, depressed, emotional problems Allergies: Coded Allergies: ALPRAZOLAM (Verified Adverse Reaction, Intermediate, 01/30/16) slurred speech, unsteady gait, poor decision making Objective Last 24 Hour Vital Signs Date Time Temp Pulse Resp B/P (MAP) Pulse Ox O2 Delivery O2 Flow Rate FiO2 01/06/17 20:52 97.3 70 20 131/74 98 Nasal Cannula 01/06/17 20:00 70 20 99 Nasal Cannula 2.0 28 01/06/17 20:00 67 01/06/17 19:45 Nasal Cannula 2.0 28 01/06/17 19:45 65 20 98 Nasal Cannula 2.0 28 01/06/17 19:45 98 Nasal Cannula 2.0 28 01/06/17 16:00 98.1 78 20 121/70 98 Nasal Cannula 01/06/17 16:00 71 01/06/17 15:44 98.5 01/06/17 13:11 77 18 99 Nasal Cannula 2.0 28 01/06/17 12:55 72 18 98 Nasal Cannula 2.0 28 01/06/17 12:00 98.5 73 20 127/75 98 Nasal Cannula 01/06/17 12:00 73 01/06/17 09:00 76 81 84 01/06/17 08:00 71 01/06/17 08:00 97.5 69 20 131/71 99 Nasal Cannula 01/06/17 07:52 Nasal Cannula 2.0 28 01/06/17 07:51 83 20 99 Nasal Cannula 2.0 28 01/06/17 07:37 79 20 94 Nasal Cannula 2.0 28 01/06/17 07:35 94 Nasal Cannula 2.0 28 01/06/17 04:00 65 01/06/17 04:00 97.3 66 20 134/74 95 Room Air 01/06/17 01:49 70 20 98 Nasal Cannula 2.0 28 01/06/17 01:49 74 20 99 Nasal Cannula 2.0 28 01/06/17 00:00 65 01/06/17 00:00 97.0 69 23 119/73 90 Room Air 01/06/17 00:00 53 57 Intake and Output 01/06/17 01/07/17 19:00 07:00 Intake Total 1005.0 ml Output Total 600 ml Balance 405.0 ml Intake Oral 640 ml IV Total 365.0 ml Output Urine Total 600 ml # Voids 1 Laboratory Tests 01/06/17 01:30: Urine Color Pale yellow, Urine Appearance Clear, Urine pH 6, Urine Specific [place] 1.015, Urine Protein Negative, Urine Glucose (UA) Negative, Urine Ketones Negative, Urine Occult Blood Negative, Urine Nitrite Negative, Urine Bilirubin Negative, Urine Urobilinogen Normal, Urine Leukocyte Esterase 1+H, Urine RBC 0, Urine WBC 5-10H, Urine Squamous Epithelial Cells Few, Urine Bacteria None, Urine Eosinophils None seen, Urine Random Sodium 67, Urine Potassium Timed 41 01/06/17 06:10: Sodium Level 136, Potassium Level 4.2, Chloride Level 101, Carbon Dioxide Level 25, Anion Gap 10, Blood Urea Nitrogen 20, Creatinine 1.6H, Estimat Glomerular Filtration Rate 43.2, Glucose Level 119H, Uric Acid 6.3, Calcium Level 10.3#H, Phosphorus Level 3.3, Magnesium Level 2.6H, Total Bilirubin 0.6, Aspartate Amino Transf (AST/SGOT) 16, Alanine Aminotransferase (ALT/SGPT) 13, Alkaline Phosphatase 102, Total Protein 6.0L, Albumin 3.9, Globulin 2.1, Albumin/ Globulin Ratio 1.8, Carcinoembryonic Antigen 1.1, Free Prostate Specific Antigen [Pending], Percent Free Prostate Specific Ag [Pending], Prostate Specific Antigen Total [Pending] Height (Feet): 5 Height (Inches): 9.00 Weight (Pounds): 246 General Appearance: no apparent distress, alert, obese Neurologic: alert, oriented x 3, responsive, depressed affect Tyler Sage M.D. Jan 06, 2017 23:14
--- NOTE | 2017-01-06 23:18 | Geriatric Progress Note ---
Assessment/Plan Assessment/Plan stable mdd encephalopathy due to [facility] cont current meds rec changing seroquel he is reluctant Discussed with: patient Subjective Subjective appeared confused today and didnt recognize me initially. the pt still adamant against changing meds. Geriatric Geriatric Last 24 Hour Vital Signs Date Time Temp Pulse Resp B/P (MAP) Pulse Ox O2 Delivery O2 Flow Rate FiO2 01/06/17 20:52 97.3 70 20 131/74 98 Nasal Cannula 01/06/17 20:00 70 20 99 Nasal Cannula 2.0 28 01/06/17 20:00 67 01/06/17 19:45 Nasal Cannula 2.0 28 01/06/17 19:45 65 20 98 Nasal Cannula 2.0 28 01/06/17 19:45 98 Nasal Cannula 2.0 28 01/06/17 16:00 98.1 78 20 121/70 98 Nasal Cannula 01/06/17 16:00 71 01/06/17 15:44 98.5 01/06/17 13:11 77 18 99 Nasal Cannula 2.0 28 01/06/17 12:55 72 18 98 Nasal Cannula 2.0 28 01/06/17 12:00 98.5 73 20 127/75 98 Nasal Cannula 01/06/17 12:00 73 01/06/17 09:00 76 81 84 01/06/17 08:00 71 01/06/17 08:00 97.5 69 20 131/71 99 Nasal Cannula 01/06/17 07:52 Nasal Cannula 2.0 28 01/06/17 07:51 83 20 99 Nasal Cannula 2.0 28 01/06/17 07:37 79 20 94 Nasal Cannula 2.0 28 01/06/17 07:35 94 Nasal Cannula 2.0 28 01/06/17 04:00 65 01/06/17 04:00 97.3 66 20 134/74 95 Room Air 01/06/17 01:49 70 20 98 Nasal Cannula 2.0 28 01/06/17 01:49 74 20 99 Nasal Cannula 2.0 28 01/06/17 00:00 65 01/06/17 00:00 97.0 69 23 119/73 90 Room Air 01/06/17 00:00 53 57 Intake and Output 01/06/17 01/07/17 19:00 07:00 Intake Total 1005.0 ml Output Total 600 ml Balance 405.0 ml Intake Oral 640 ml IV Total 365.0 ml Output Urine Total 600 ml # Voids 1 Laboratory Tests Test 01/06/17 01:30 01/06/17 06:10 Urine Color Pale yellow Urine Appearance Clear Urine pH 6 (4.5-8.0) Urine Specific [place] 1.015 (1.005-1.035) Urine Protein Negative (NEGATIVE) Urine Glucose (UA) Negative (NEGATIVE) Urine Ketones Negative (NEGATIVE) Urine Occult Blood Negative (NEGATIVE) Urine Nitrite Negative (NEGATIVE) Urine Bilirubin Negative (NEGATIVE) Urine Urobilinogen Normal MG/DL (0.0-1.0) Urine Leukocyte Esterase 1+ (NEGATIVE) H Urine RBC 0 /HPF (0 - 0) Urine WBC 5-10 /HPF (0 - 0) H Urine Squamous Epithelial Cells Few /LPF (NONE/OCC) Urine Bacteria None /HPF (NONE) Urine Eosinophils None seen Urine Random Sodium 67 mmol/L Urine Potassium Timed 41 mmol/L Sodium Level 136 mEQ/L (135-145) Potassium Level 4.2 mEQ/L (3.4-4.9) Chloride Level 101 mEQ/L (98-107) Carbon Dioxide Level 25 mEQ/L (20-30) Anion Gap 10 (5-15) Blood Urea Nitrogen 20 mg/dL (7-23) Creatinine 1.6 mg/dL (0.7-1.2) H Estimat Glomerular Filtration Rate 43.2 mL/min (>60) Glucose Level 119 mg/dL (74-106) H Uric Acid 6.3 mg/dL (3.0-7.5) Calcium Level 10.3 mg/dL (8.6-10.2) #H Phosphorus Level 3.3 mg/dL (2.5-4.8) Magnesium Level 2.6 mg/dL (1.7-2.5) H Total Bilirubin 0.6 mg/dL (0.0-1.2) Aspartate Amino Transf (AST/SGOT) 16 U/L (5-40) Alanine Aminotransferase (ALT/SGPT) 13 U/L (3-41) Alkaline Phosphatase 102 U/L (40-129) Total Protein 6.0 g/dL (6.6-8.7) L Albumin 3.9 g/dL (3.5-5.2) Globulin 2.1 g/dL Albumin/Globulin Ratio 1.8 (1.0-2.7) Carcinoembryonic Antigen 1.1 ng/mL Free Prostate Specific Antigen Pending Percent Free Prostate Specific Ag Pending Prostate Specific Antigen Total Pending Current Medications Medications (Trade) Dose Ordered Sig/Ira Route PRN Reason Start Time Stop Time Status Last Admin Dose Admin Acetaminophen (Tylenol) 650 mg Q4H PRN ORAL fever 01/04/17 06:45 02/03/17 06:44 Albuterol/ Ipratropium (DuoNeb 0.5-3(2.5)mg/3ml) 3 ml Q4H PRN HHN Shortness of Breath 01/04/17 06:45 01/09/17 06:44 Albuterol/ Ipratropium (DuoNeb 0.5-3(2.5)mg/3ml) 3 ml Q6HRT HHN 01/04/17 07:00 01/09/17 06:59 01/06/17 20:00 Atorvastatin Calcium (Lipitor) 80 mg BEDTIME ORAL 01/04/17 21:00 02/03/17 20:59 01/06/17 21:56 Bupropion HCl (Wellbutrin SR) 150 mg DAILY ORAL 01/04/17 09:00 02/03/17 08:59 01/06/17 09:29 Clonidine HCl (Catapres) 0.1 mg Q4H PRN ORAL For High Blood Pressure 01/04/17 06:45 02/03/17 06:44 Dextrose (Dextrose 50%) STAT PRN IV Hypoglycemia 01/04/17 06:45 02/03/17 06:44 Escitalopram Oxalate (Lexapro) 40 mg DAILY ORAL 01/04/17 09:00 02/03/17 08:59 01/06/17 09:28 Gabapentin (Neurontin) 300 mg DAILY ORAL 01/04/17 09:00 02/03/17 08:59 01/06/17 09:28 Heparin Sodium (Porcine) (Heparin 5000 units/ml) 5,000 units EVERY 12 HOURS SUBQ 01/04/17 09:00 02/03/17 08:59 01/06/17 21:57 Liothyronine Sodium (Cytomel) 10 mcg DAILY@0630 ORAL 01/05/17 06:30 02/04/17 06:29 01/06/17 05:49 Lorazepam (Ativan 2mg/ml 1ml) 0.5 mg Q4H PRN IV For Anxiety 01/04/17 06:45 01/11/17 06:44 Morphine Sulfate (Morphine Sulfate) 1 mg Q4H PRN IVP For Pain 7-10 01/04/17 06:45 01/11/17 06:44 01/06/17 15:14 Nitroglycerin (Ntg) 0.4 mg Q5M X 3 DOSES PRN SL Prn Chest Pain 01/04/17 06:45 02/03/17 06:44 Nortriptyline HCl (Pamelor) 25 mg Q12HR ORAL 01/04/17 21:00 02/03/17 08:59 01/06/17 21:56 Ondansetron HCl (Zofran) 4 mg Q6H PRN IVP Nausea & Vomiting 01/04/17 06:45 02/03/17 06:44 Piperacillin Sod/ Tazobactam Sod 3.375 gm/Sodium Chloride 110 ml @ 27.5 mls/hr EVERY 8 HOURS IVPB 01/05/17 12:00 01/12/17 11:59 01/06/17 21:56 Polyethylene Glycol (Miralax) 17 gm HSPRN PRN ORAL Constipation 01/04/17 06:45 02/03/17 06:44 Promethazine HCl/ Codeine (Phenergan with Codeine) 5 ml Q4H PRN ORAL For Cough 01/04/17 06:45 02/03/17 06:44 01/06/17 21:55 Quetiapine Fumarate (SEROquel) 50 mg tid ORAL 01/04/17 09:00 02/03/17 08:59 01/06/17 17:23 Sodium Chloride 1,000 ml @ 50 mls/hr Q20H IV 01/06/17 08:30 02/05/17 08:29 01/06/17 09:30 Tamsulosin HCl (Flomax) 0.4 mg BID ORAL 01/04/17 09:00 02/03/17 08:59 01/06/17 17:23 Temazepam (Restoril) 15 mg HSPRN PRN ORAL Insomnia 01/04/17 06:45 01/11/17 06:44 Height (Feet): 5 Height (Inches): 9.00 Weight (Pounds): 246 General Appearance: well nourished, no apparent distress, alert, good eye contact, appears stated age, obese Neurologic: alert, responsive Psychiatric Behavior: cooperative Language/Speech: intact, fluent Orientation: person, place, disoriented Affect: appropriate Insight: poor Tyler Sage M.D. Jan 06, 2017 23:18
[2017-01-07 00:22] VITALS: BP 142/76
[2017-01-07] MEDS: Morphine Sulfate 2mg/ml Inj IVP PRN (00:56)
[2017-01-07] MEDS: DuoNeb 0.5-3(2.5)mg/3ml neb HHN SCH ×4 (01:23→19:36)
--- NOTE | 2017-01-07 03:31 | Consultation ---
Consult Note Consult Note ID Consult Cough Probable Pneumonia Scx : Nl La ( SP Z-pack at home SP hypotension P: Cont pt on Zosyn d# 2 / 7 , upon DC will change to Augmentin and Levaquin to complete the course monitor CBC Monitor C Xray Monitor Cultures DOMINIC NUNEZ M.D. Jan 07, 2017 03:31
[2017-01-07 04:08] VITALS: BP 138/69
[2017-01-07] MEDS: Piperacillin/Tazobactam 3.375 GM in NS 110 ML IVPB SCH (06:39)
[2017-01-07] MEDS: Liothyronine 5mcg tab ORAL SCH (06:39)
[2017-01-07] MEDS: Promethazine/Codeine 5ml UD ORAL PRN (06:39)
--- NOTE | 2017-01-07 08:15 | Consultation ---
DATE OF CONSULTATION: 01/06/2017 UROLOGY CONSULTATION CONSULTING PHYSICIAN: Beau Waggoner M.D. ATTENDING/REFERRING PHYSICIAN: Kaylynn Mendoza M.D. Chief Complaint/History Of Present Illness: I was asked by Dr. Mendoza to evaluate this 66-year-old gentleman regarding a history of possible bladder mass noted on ultrasound. Briefly, the patient came to the hospital with a history of altered level of consciousness and acute encephalopathy. He was found to be in renal failure and admitted to the hospital. Workup for the same with renal ultrasound revealed evidence of a mass at the base of the bladder contiguous with the prostate. Given the above, I was asked to evaluate the patient. The patient is a good historian and reports to me no significant baseline urinary symptoms. He has no nocturia and urinates a normal four to six times a day. He reports a good force of stream and no straining to void or difficulty emptying his bladder. He has never had a urinary tract infection, stone, or prostate issues that he knows of and he has never seen a urologist. PAST MEDICAL HISTORY: 1. Bipolar disorder. 2. Hypertension. 3. Hypercholesterolemia. 4. Acute renal insufficiency here. 5. Syncopal episode. PAST SURGICAL HISTORY: None. Medications: Please see the chart for current medications administration details. ALLERGIES: Include alprazolam. SOCIAL HISTORY: Unremarkable for tobacco, alcohol, or drug use. FAMILY HISTORY: Noncontributory. Review Of Systems: A 12-system review of systems is essentially unremarkable outside of what was described above. PHYSICAL EXAMINATION: General: The patient is an older gentleman, awake, alert, and oriented x4, pleasant, no obvious distress. HEENT: NCAT. EOMI. Oropharynx clear. NECK: Supple. Full range of motion. CHEST: Within normal limits. ABDOMEN: Soft, obese, nontender, and nondistended. Extremities: Warm and well perfused. No cyanosis, clubbing, or edema. BACK: No CVA tenderness to percussion. NEUROLOGIC: Grossly nonfocal. Genitourinary: Normal male phallus. No discharge, lesions, or curvature, although there is slight blood at the urethral meatus and on the patient's shorts. Bilaterally descended testes. Cord structures with no masses or tenderness to palpation. Laboratory Data: White blood cell count 8.2, hematocrit 34.4, and platelets 257,000. PT 10.2, INR 1.0, and PTT 28. Sodium 136, potassium 4.2, chloride 101, bicarbonate 25, BUN 20, creatinine 1.6, glucose 119, calcium 10.3. Uric acid 6.3. Alkaline phosphatase 102. LFTs within normal limits. PSA pending. Urinalysis, specific gravity 1.015, pH 6.0. Dip test negative for all findings. Microanalysis with 5 to 10 white blood cells per high-power field for all findings except for 1+ leukocyte esterase. Microanalysis with 5 to 10 white blood cells per high-power field. No bacteria seen. Diagnostic Imaging: Renal ultrasound reveals normal size, contour, and echogenicity of both kidneys. There is no hydronephrosis. There is a mass at the base of the bladder that appears to be contiguous with prostate gland. There is moderate shadowing in this location. Imaging, somewhat poor. Prostate measures 5.7 x 5.3 x 4.7 cm in size. Assessment And Plan: In summary, the patient is a 66-year-old gentleman with a history of acute renal insufficiency in the setting of altered mental status and acute encephalopathy. He presented with a creatinine of 1.6. Workup with an ultrasound did not reveal any evidence of hydronephrosis, renal mass, or stone, but did reveal a mass in the base of bladder contiguous with the prostate, likely representing an enlarged prostate. The patient denies any history of baseline urinary symptoms or urologic issues or problems in the past. Physical exam is essentially unremarkable from a genitourinary standpoint. Laboratory data is notable for acute renal insufficiency and diagnostic imaging reveals findings described above. I discussed these findings today with the patient at bedside. He had just voided prior to my entering and had voided 500 mL of clear urine without difficulty. Given that he has no baseline urinary symptoms, he is emptying his bladder easily and completely and the ultrasound is likely appeals representative of enlarged prostate without urinary obstruction. I am going to merely observe the patient at this time. Once he is discharged, he will follow up with me in the office for prostate exam and to ensure that he is continuing to empty his bladder well. Plan was discussed with the patient, who understood and agreed. Thank you for allowing me to participate in the care of this nice gentleman. Please do not hesitate to contact me with any questions that you may further have regarding his care. I will be happy to continue to see him with you as needed. Beau Waggoner M.D. DR: Sugar JOB#: [id number] CC:
[2017-01-07 08:22] VITALS: BP 158/88
[2017-01-07] MEDS: Nortriptyline 25mg cap ORAL SCH ×2 (10:36→21:13)
[2017-01-07] MEDS: Tamsulosin 0.4mg cap ORAL SCH ×2 (10:36→17:15)
[2017-01-07] MEDS: BuPROPion SR 150mg tab ORAL SCH (10:36)
--- NOTE | 2017-01-07 10:42 | General Progress Note ---
Assessment/Plan Status: stable Assessment/Plan Status: Renal failure- Acute on chronic- Cr down to 1.6 Hypotension on presentation Syncope / head laceration Plan: no labs today Slow hydrate monitor renal parameters avoid nephrotoxics adjust psych meds ? DC planning Subjective ROS Limited/Unobtainable: No Allergies: Coded Allergies: ALPRAZOLAM (Verified Adverse Reaction, Intermediate, 01/30/16) slurred speech, unsteady gait, poor decision making Objective Last 24 Hour Vital Signs Date Time Temp Pulse Resp B/P (MAP) Pulse Ox O2 Delivery O2 Flow Rate FiO2 01/07/17 08:50 86 01/07/17 08:45 78 01/07/17 08:40 73 01/07/17 08:22 96.3 78 20 158/88 95 Nasal Cannula 2.0 01/07/17 07:46 69 20 99 Nasal Cannula 2.0 28 01/07/17 07:43 Nasal Cannula 2.0 28 01/07/17 07:35 65 18 91 Room Air 21 01/07/17 07:34 91 Room Air 21 01/07/17 04:08 97.6 72 20 138/69 98 Nasal Cannula 01/07/17 04:00 66 01/07/17 01:24 72 20 99 Nasal Cannula 2.0 28 01/07/17 01:23 68 20 97 Nasal Cannula 2.0 28 01/07/17 00:22 97.3 70 20 142/76 98 Nasal Cannula 01/07/17 00:00 71 01/06/17 20:52 97.3 70 20 131/74 98 Nasal Cannula 01/06/17 20:00 70 20 99 Nasal Cannula 2.0 28 01/06/17 20:00 67 01/06/17 19:45 Nasal Cannula 2.0 28 01/06/17 19:45 65 20 98 Nasal Cannula 2.0 28 01/06/17 19:45 98 Nasal Cannula 2.0 28 01/06/17 16:00 98.1 78 20 121/70 98 Nasal Cannula 01/06/17 16:00 71 01/06/17 15:44 98.5 01/06/17 13:11 77 18 99 Nasal Cannula 2.0 28 01/06/17 12:55 72 18 98 Nasal Cannula 2.0 28 01/06/17 12:00 98.5 73 20 127/75 98 Nasal Cannula 01/06/17 12:00 73 Intake and Output 01/07/17 01/08/17 19:00 07:00 Intake Total 240 ml Balance 240 ml Intake Oral 240 ml Laboratory Tests 01/07/17 05:00: Stool Occult Blood [Pending] Height (Feet): 5 Height (Inches): 9.00 Weight (Pounds): 246 General Appearance: no apparent distress Cardiovascular: regular rhythm Respiratory/Chest: decreased breath sounds Objective no change- no signs of CHF ISRRAEL SHARMA Jan 07, 2017 10:42
[2017-01-07] MEDS: Heparin 5000 units/ml inj SUBQ SCH ×2 (10:43→21:13)
[2017-01-07 11:10] LABS: PSA % FREE 20.8 % (.); PSA FREE 1.02 ng/mL; PSA TOTAL 4.9 ng/mL (0.0-4.0)
[2017-01-07] MEDS ORDERED: Nitroglycerin Subl 0.4mg tab SL PRN (11:30)
[2017-01-07 12:00] VITALS: BP 140/82
[2017-01-07] MEDS ORDERED: LORazepam Inj 2mg/ml 1ml IV PRN (12:00)
[2017-01-07] MEDS ORDERED: Promethazine/Codeine 5ml UD ORAL PRN (12:00)
[2017-01-07] MEDS ORDERED: Morphine Sulfate 2mg/ml Inj IVP PRN (12:00)
[2017-01-07] MEDS ORDERED: DuoNeb 0.5-3(2.5)mg/3ml neb HHN PRN (12:00)
[2017-01-07] MEDS ORDERED: Piperacillin/Tazobactam 3.375 GM in NS 110 ML IVPB SCH (14:00)
[2017-01-07] MEDS ORDERED: ESCITALOPRAM OX20 MG ORAL (14:26)
[2017-01-07] MEDS ORDERED: NEURONTIN300 MG ORAL (15:29)
[2017-01-07] MEDS ORDERED: CYTOMEL5 MCG ORAL (15:29)
[2017-01-07] MEDS ORDERED: NORTRIPTYLINE H25 MG ORAL (15:29)
[2017-01-07] MEDS ORDERED: FLOMAX0.4 MG ORAL (15:29)
[2017-01-07] MEDS ORDERED: LIPITOR80 MG ORAL (15:29)
[2017-01-07] MEDS ORDERED: SEROQUEL25 MG ORAL (15:29)
[2017-01-07] MEDS ORDERED: LEXAPRO10 MG ORAL (15:29)
[2017-01-07] MEDS ORDERED: BUPROPION HCL150 M5 ORAL (15:29)
--- NOTE | 2017-01-07 15:49 | Pulmonology Progress Note ---
Assessment/Plan Problems: (1) Acute encephalopathy (2) Syncope (3) ATN (acute tubular necrosis) (4) Hypotension (5) Psychiatric diagnosis Assessment/Plan improving no more cough renal w/u in progress bp still borderline low psych evaluation as well urology consult appreciated PSa ordered dc home with HH/ Subjective ROS Limited/Unobtainable: No Constitutional: Reports: no symptoms HEENT: Repors: no symptoms Respiratory: Reports: no symptoms Cardiovascular: Reports: no symptoms Allergies: Coded Allergies: ALPRAZOLAM (Verified Adverse Reaction, Intermediate, 01/30/16) slurred speech, unsteady gait, poor decision making Objective Last 24 Hour Vital Signs Date Time Temp Pulse Resp B/P (MAP) Pulse Ox O2 Delivery O2 Flow Rate FiO2 01/07/17 13:16 67 20 99 Nasal Cannula 2.0 28 01/07/17 13:16 69 20 Nasal Cannula 21 01/07/17 13:05 65 18 98 Nasal Cannula 2.0 28 01/07/17 12:00 97.9 75 20 140/82 95 Nasal Cannula 01/07/17 11:36 82 01/07/17 08:50 86 01/07/17 08:45 78 01/07/17 08:40 73 01/07/17 08:22 96.3 78 20 158/88 95 Nasal Cannula 2.0 01/07/17 07:46 69 20 99 Nasal Cannula 2.0 28 01/07/17 07:43 Nasal Cannula 2.0 28 01/07/17 07:35 65 18 91 Room Air 21 01/07/17 07:34 91 Room Air 21 01/07/17 04:08 97.6 72 20 138/69 98 Nasal Cannula 01/07/17 04:00 66 01/07/17 01:24 72 20 99 Nasal Cannula 2.0 28 01/07/17 01:23 68 20 97 Nasal Cannula 2.0 28 01/07/17 00:22 97.3 70 20 142/76 98 Nasal Cannula 01/07/17 00:00 71 01/06/17 20:52 97.3 70 20 131/74 98 Nasal Cannula 01/06/17 20:00 70 20 99 Nasal Cannula 2.0 28 01/06/17 20:00 67 01/06/17 19:45 Nasal Cannula 2.0 28 01/06/17 19:45 65 20 98 Nasal Cannula 2.0 28 01/06/17 19:45 98 Nasal Cannula 2.0 28 01/06/17 16:00 98.1 78 20 121/70 98 Nasal Cannula 01/06/17 16:00 71 Intake and Output 01/07/17 01/08/17 19:00 07:00 Intake Total 390 ml Balance 390 ml Intake Oral 240 ml IV Total 150 ml General Appearance: WD/WN HEENT: normocephalic, atraumatic Respiratory/Chest: chest wall non-tender, lungs clear Cardiovascular: normal peripheral pulses, normal rate Abdomen: normal bowel sounds, soft, non tender Genitourinary: normal external genitalia Extremities: no clubbing 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 Laboratory Tests 01/07/17 05:00: Stool Occult Blood Negative Current Medications Medications (Trade) Dose Ordered Sig/Ira Route PRN Reason Start Time Stop Time Status Last Admin Dose Admin Acetaminophen (Tylenol) 650 mg Q4H PRN ORAL T>100.5 01/07/17 12:00 02/03/17 11:59 Albuterol/ Ipratropium (DuoNeb 0.5-3(2.5)mg/3ml) 3 ml Q4H PRN HHN Shortness of Breath 01/07/17 12:00 01/09/17 11:59 Albuterol/ Ipratropium (DuoNeb 0.5-3(2.5)mg/3ml) 3 ml Q6HRT HHN 01/07/17 13:00 01/09/17 06:59 01/07/17 13:13 Atorvastatin Calcium (Lipitor) 80 mg BEDTIME ORAL 01/07/17 21:00 02/03/17 20:59 Bupropion HCl (Wellbutrin SR) 150 mg DAILY ORAL 01/08/17 09:00 02/03/17 08:59 Clonidine HCl (Catapres) 0.1 mg Q4H PRN ORAL SBP>160mmHg 01/07/17 12:00 02/03/17 11:59 Dextrose (Dextrose 50%) STAT PRN IV Hypoglycemia 01/07/17 12:00 02/06/17 11:59 Escitalopram Oxalate (Lexapro) 20 mg DAILY ORAL 01/08/17 09:00 02/03/17 08:59 Gabapentin (Neurontin) 300 mg DAILY ORAL 01/08/17 09:00 02/03/17 08:59 Heparin Sodium (Porcine) (Heparin 5000 units/ml) 5,000 units EVERY 12 HOURS SUBQ 01/07/17 21:00 02/03/17 08:59 Liothyronine Sodium (Cytomel) 10 mcg DAILY@0630 ORAL 01/08/17 06:30 02/04/17 06:29 Lorazepam (Ativan 2mg/ml 1ml) 0.5 mg Q4H PRN IV For Anxiety 01/07/17 12:00 01/11/17 11:59 Morphine Sulfate (Morphine Sulfate) 1 mg Q4H PRN IVP For Pain 7-10 01/07/17 12:00 01/11/17 11:59 Nitroglycerin (Ntg) 0.4 mg Q5M X 3 DOSES PRN SL Prn Chest Pain 01/07/17 11:30 02/03/17 06:44 Nortriptyline HCl (Pamelor) 25 mg Q12HR ORAL 01/07/17 21:00 02/03/17 08:59 Ondansetron HCl (Zofran) 4 mg Q6H PRN IVP Nausea & Vomiting 01/07/17 12:00 02/03/17 11:59 Piperacillin Sod/ Tazobactam Sod 3.375 gm/Sodium Chloride 110 ml @ 27.5 mls/hr EVERY 8 HOURS IVPB 01/07/17 14:00 01/12/17 11:59 01/07/17 14:09 Polyethylene Glycol (Miralax) 17 gm HSPRN PRN ORAL Constipation 01/07/17 21:00 02/06/17 20:59 Promethazine HCl/ Codeine (Phenergan with Codeine) 5 ml Q4H PRN ORAL For Cough 01/07/17 12:00 02/03/17 11:59 Quetiapine Fumarate (SEROquel) 50 mg Q8HR ORAL 01/07/17 14:00 02/06/17 13:59 01/07/17 14:08 Sodium Chloride 1,000 ml @ 50 mls/hr Q20H IV 01/07/17 12:00 02/06/17 11:59 01/07/17 11:30 Tamsulosin HCl (Flomax) 0.4 mg BID ORAL 01/07/17 18:00 02/03/17 08:59 Temazepam (Restoril) 15 mg HSPRN PRN ORAL Insomnia 01/07/17 21:00 01/14/17 20:59 CATALINO MCKENZIE Jan 07, 2017 15:49
--- NOTE | 2017-01-07 15:54 | Diagnostic Imaging Report ---
Indication: Enlarged prostate, benign prostatic hypertrophy, suspected prostatic neoplasm Technique: Transabdominal images of the prostate Comparison: None Findings: The prostate is enlarged, measuring 6 x 4.3 x 5.7 cm, total volume 78 mL. The bladder is unremarkable Impression: Nonspecific prostatomegaly Note that for evaluation of potential prostatic neoplasm, examination with endorectal prostatic transducer is necessary. This is not available at this facility
[2017-01-07 16:00] VITALS: BP 142/78
--- NOTE | 2017-01-07 17:53 | Infectious Diseases Prog Note ---
Assessment/Plan Assessment/Plan A: Cough improving Probable Pneumonia Scx : Nl La ( SP Z-pack at home ) , C Xray : NAPD SP hypotension P: pt on Zosyn ( AB Rx d# 2 / 5 ) , will change to Augmentin and upon DC will cont to complete the course , ( Rx in chart ) monitor CBC and BMP Monitor C Xray Monitor Cultures Uro is following monitor Cxray Subjective Constitutional: Denies: no symptoms, fever, chills, fatigue, anorexia, drenching sweats, other Allergies: Coded Allergies: ALPRAZOLAM (Verified Adverse Reaction, Intermediate, 01/30/16) slurred speech, unsteady gait, poor decision making Objective Vital Signs Last 24 Hour Vital Signs Date Time Temp Pulse Resp B/P (MAP) Pulse Ox O2 Delivery O2 Flow Rate FiO2 01/07/17 16:00 97.9 74 20 142/78 96 Nasal Cannula 01/07/17 13:16 67 20 99 Nasal Cannula 2.0 28 01/07/17 13:16 69 20 Nasal Cannula 21 01/07/17 13:05 65 18 98 Nasal Cannula 2.0 28 01/07/17 12:00 97.9 75 20 140/82 95 Nasal Cannula 01/07/17 11:36 82 01/07/17 08:50 86 01/07/17 08:45 78 01/07/17 08:40 73 01/07/17 08:22 96.3 78 20 158/88 95 Nasal Cannula 2.0 01/07/17 07:46 69 20 99 Nasal Cannula 2.0 28 01/07/17 07:43 Nasal Cannula 2.0 28 01/07/17 07:35 65 18 91 Room Air 21 01/07/17 07:34 91 Room Air 21 01/07/17 04:08 97.6 72 20 138/69 98 Nasal Cannula 01/07/17 04:00 66 01/07/17 01:24 72 20 99 Nasal Cannula 2.0 28 01/07/17 01:23 68 20 97 Nasal Cannula 2.0 28 01/07/17 00:22 97.3 70 20 142/76 98 Nasal Cannula 01/07/17 00:00 71 01/06/17 20:52 97.3 70 20 131/74 98 Nasal Cannula 01/06/17 20:00 70 20 99 Nasal Cannula 2.0 28 01/06/17 20:00 67 01/06/17 19:45 Nasal Cannula 2.0 28 01/06/17 19:45 65 20 98 Nasal Cannula 2.0 28 01/06/17 19:45 98 Nasal Cannula 2.0 28 Height (Feet): 5 Height (Inches): 9.00 Weight (Pounds): 246 HEENT: anicteric Respiratory/Chest: normal breath sounds Cardiovascular: regular rhythm Abdomen: normal bowel sounds Laboratory Tests Test 01/07/17 05:00 Stool Occult Blood Negative (NEGATIVE) Current Medications Medications (Trade) Dose Ordered Sig/Ira Route PRN Reason Start Time Stop Time Status Last Admin Dose Admin Acetaminophen (Tylenol) 650 mg Q4H PRN ORAL T>100.5 01/07/17 12:00 02/03/17 11:59 Albuterol/ Ipratropium (DuoNeb 0.5-3(2.5)mg/3ml) 3 ml Q4H PRN HHN Shortness of Breath 01/07/17 12:00 01/09/17 11:59 Albuterol/ Ipratropium (DuoNeb 0.5-3(2.5)mg/3ml) 3 ml Q6HRT HHN 01/07/17 13:00 01/09/17 06:59 01/07/17 13:13 Atorvastatin Calcium (Lipitor) 80 mg BEDTIME ORAL 01/07/17 21:00 02/03/17 20:59 Bupropion HCl (Wellbutrin SR) 150 mg DAILY ORAL 01/08/17 09:00 02/03/17 08:59 Clonidine HCl (Catapres) 0.1 mg Q4H PRN ORAL SBP>160mmHg 01/07/17 12:00 02/03/17 11:59 Dextrose (Dextrose 50%) STAT PRN IV Hypoglycemia 01/07/17 12:00 02/06/17 11:59 Escitalopram Oxalate (Lexapro) 20 mg DAILY ORAL 01/08/17 09:00 02/03/17 08:59 Gabapentin (Neurontin) 300 mg DAILY ORAL 01/08/17 09:00 02/03/17 08:59 Heparin Sodium (Porcine) (Heparin 5000 units/ml) 5,000 units EVERY 12 HOURS SUBQ 01/07/17 21:00 02/03/17 08:59 Liothyronine Sodium (Cytomel) 10 mcg DAILY@0630 ORAL 01/08/17 06:30 02/04/17 06:29 Lorazepam (Ativan 2mg/ml 1ml) 0.5 mg Q4H PRN IV For Anxiety 01/07/17 12:00 01/11/17 11:59 Morphine Sulfate (Morphine Sulfate) 1 mg Q4H PRN IVP For Pain 7-10 01/07/17 12:00 01/11/17 11:59 Nitroglycerin (Ntg) 0.4 mg Q5M X 3 DOSES PRN SL Prn Chest Pain 01/07/17 11:30 02/03/17 06:44 Nortriptyline HCl (Pamelor) 25 mg Q12HR ORAL 01/07/17 21:00 02/03/17 08:59 Ondansetron HCl (Zofran) 4 mg Q6H PRN IVP Nausea & Vomiting 01/07/17 12:00 02/03/17 11:59 Polyethylene Glycol (Miralax) 17 gm HSPRN PRN ORAL Constipation 01/07/17 21:00 02/06/17 20:59 Promethazine HCl/ Codeine (Phenergan with Codeine) 5 ml Q4H PRN ORAL For Cough 01/07/17 12:00 02/03/17 11:59 Quetiapine Fumarate (SEROquel) 50 mg Q8HR ORAL 01/07/17 14:00 02/06/17 13:59 01/07/17 14:08 Tamsulosin HCl (Flomax) 0.4 mg BID ORAL 01/07/17 18:00 02/03/17 08:59 01/07/17 17:15 Temazepam (Restoril) 15 mg HSPRN PRN ORAL Insomnia 01/07/17 21:00 01/14/17 20:59 DOMINIC NUNEZ M.D. Jan 07, 2017 17:53
[2017-01-07 20:00] VITALS: BP 171/89
[2017-01-07] MEDS ORDERED: Atorvastatin 80mg tab ORAL SCH (21:00)
[2017-01-07] MEDS ORDERED: Miralax 17gm pkt ORAL PRN (21:00)
--- NOTE | 2017-01-07 22:51 | General Progress Note ---
Assessment/Plan Status: stable, progressing Subjective Neurologic/Psychiatric: Reports: anxiety, depressed, emotional problems Allergies: Coded Allergies: ALPRAZOLAM (Verified Adverse Reaction, Intermediate, 01/30/16) slurred speech, unsteady gait, poor decision making Objective Last 24 Hour Vital Signs Date Time Temp Pulse Resp B/P (MAP) Pulse Ox O2 Delivery O2 Flow Rate FiO2 01/07/17 19:57 71 18 97 Nasal Cannula 2.0 28 01/07/17 19:39 97 Nasal Cannula 2.0 28 01/07/17 19:39 70 18 97 Nasal Cannula 2.0 28 01/07/17 19:39 Nasal Cannula 2.0 28 01/07/17 16:00 97.9 74 20 142/78 96 Nasal Cannula 01/07/17 13:16 67 20 99 Nasal Cannula 2.0 28 01/07/17 13:16 69 20 Nasal Cannula 21 01/07/17 13:05 65 18 98 Nasal Cannula 2.0 28 01/07/17 12:00 97.9 75 20 140/82 95 Nasal Cannula 01/07/17 11:36 82 01/07/17 08:50 86 01/07/17 08:45 78 01/07/17 08:40 73 01/07/17 08:22 96.3 78 20 158/88 95 Nasal Cannula 2.0 01/07/17 07:46 69 20 99 Nasal Cannula 2.0 28 01/07/17 07:43 Nasal Cannula 2.0 28 01/07/17 07:35 65 18 91 Room Air 21 01/07/17 07:34 91 Room Air 21 01/07/17 04:08 97.6 72 20 138/69 98 Nasal Cannula 01/07/17 04:00 66 01/07/17 01:24 72 20 99 Nasal Cannula 2.0 28 01/07/17 01:23 68 20 97 Nasal Cannula 2.0 28 01/07/17 00:22 97.3 70 20 142/76 98 Nasal Cannula 01/07/17 00:00 71 Intake and Output 01/07/17 01/08/17 19:00 07:00 Intake Total 630 ml Balance 630 ml Intake Oral 480 ml IV Total 150 ml # Voids 1 # Bowel Movements 1 Laboratory Tests 01/07/17 05:00: Stool Occult Blood Negative Height (Feet): 5 Height (Inches): 9.00 Weight (Pounds): 246 General Appearance: no apparent distress, alert, overweight Neurologic: alert, oriented x 3, responsive, depressed affect Tyler Sage M.D. Jan 07, 2017 22:51
[2017-01-08] VITALS: BP 143/76
[2017-01-08] MEDS: DuoNeb 0.5-3(2.5)mg/3ml neb HHN SCH ×3 (01:47→13:00)
[2017-01-08 04:00] VITALS: BP 152/84
[2017-01-08 06:20] LABS: BASOPHILS % (AUTO) 0.5 % (0.0-2.0); EOSINOPHILS % (AUTO) 4.9 % (0.0-3.0); LYMPHOCYTES % (AUTO) 17.2 % (20.0-45.0); MEAN CORPUSCULAR HGB CONC 34.2 G/DL (32.0-36.0); MEAN CORPUSCULAR VOLUME 96 FL (80-99); MEAN PLATELET VOLUME 7.1 FL (6.5-10.1); NEUTROPHILS % (AUTO) 68.4 % (45.0-75.0); PLATELET COUNT 211 K/UL (150-450); RED BLOOD COUNT 2.95 M/UL (4.70-6.10); RED CELL DISTRIBUTION WIDTH 11.9 % (11.6-14.8); WHITE BLOOD COUNT 5.3 K/UL (4.8-10.8)
[2017-01-08] MEDS ORDERED: Liothyronine 5mcg tab ORAL SCH (06:30)
[2017-01-08 06:36] LABS: ALBUMIN/GLOBULIN RATIO 1.2 (1.0-2.7); CALCIUM 8.6 mg/dL (8.6-10.2); CREATININE 1.5 mg/dL (0.7-1.2); GLOMERULAR FILTRATION RATE 46.5 mL/min (>60); MAGNESIUM 2.1 mg/dL (1.7-2.5); POTASSIUM 4.2 mEQ/L (3.4-4.9); TOTAL PROTEIN 6.1 g/dL (6.6-8.7); URIC ACID 5.4 mg/dL (3.0-7.5)
[2017-01-08 08:00] VITALS: BP 160/78
[2017-01-08] MEDS: Nortriptyline 25mg cap ORAL SCH (08:38)
[2017-01-08] MEDS: Tamsulosin 0.4mg cap ORAL SCH (08:38)
[2017-01-08] MEDS: Heparin 5000 units/ml inj SUBQ SCH (08:54)
--- NOTE | 2017-01-08 08:57 | General Progress Note ---
Assessment/Plan Status: stable Status Narrative Cr 1.5 Assessment/Plan Status: Renal failure- Acute on chronic- Cr down to 1.6 Hypotension on presentation Syncope / head laceration Plan: no labs today Slow hydrate monitor renal parameters avoid nephrotoxics adjust psych meds ? DC planning Subjective ROS Limited/Unobtainable: No Allergies: Coded Allergies: ALPRAZOLAM (Verified Adverse Reaction, Intermediate, 01/30/16) slurred speech, unsteady gait, poor decision making Objective Last 24 Hour Vital Signs Date Time Temp Pulse Resp B/P (MAP) Pulse Ox O2 Delivery O2 Flow Rate FiO2 01/08/17 08:00 97.5 84 17 160/78 93 Room Air 01/08/17 07:15 Room Air 01/08/17 07:15 96 Room Air 01/08/17 07:15 Room Air 01/08/17 07:15 Room Air 01/08/17 04:00 97.5 69 20 152/84 95 Nasal Cannula 2.0 01/08/17 02:01 70 18 99 Nasal Cannula 2.0 01/08/17 01:47 73 18 98 Nasal Cannula 2.0 01/08/17 00:00 97.5 64 20 143/76 93 Room Air 01/07/17 20:00 97.6 64 19 171/89 95 Room Air 01/07/17 19:57 71 18 97 Nasal Cannula 2.0 01/07/17 19:39 97 Nasal Cannula 2.0 01/07/17 19:39 70 18 97 Nasal Cannula 2.0 01/07/17 19:39 Nasal Cannula 2.0 01/07/17 16:00 97.9 74 20 142/78 96 Nasal Cannula 01/07/17 13:16 67 20 99 Nasal Cannula 2.0 01/07/17 13:16 69 20 Nasal Cannula 21 01/07/17 13:05 65 18 98 Nasal Cannula 2.0 01/07/17 12:00 97.9 75 20 140/82 95 Nasal Cannula 01/07/17 11:36 82 Laboratory Tests 01/08/17 05:20: White Blood Count 5.3, Red Blood Count 2.95L, Hemoglobin 9.7L, Hematocrit 28.4L , Mean Corpuscular Volume 96, Mean Corpuscular Hemoglobin 33.0H, Mean Corpuscular Hemoglobin Concent 34.2, Red Cell Distribution Width 11.9, Platelet Count 211, Mean Platelet Volume 7.1, Neutrophils (%) (Auto) 68.4, Lymphocytes (% ) (Auto) 17.2L, Monocytes (%) (Auto) 9.0, Eosinophils (%) (Auto) 4.9H, Basophils (%) (Auto) 0.5, Sodium Level 140, Potassium Level 4.2, Chloride Level 103, Carbon Dioxide Level 26, Anion Gap 11, Blood Urea Nitrogen 15, Creatinine 1.5H, Estimat Glomerular Filtration Rate 46.5, Glucose Level 108H, Uric Acid 5.4 , Calcium Level 8.6, Phosphorus Level 3.0, Magnesium Level 2.1, Total Bilirubin 0.5, Aspartate Amino Transf (AST/SGOT) 29, Alanine Aminotransferase (ALT/SGPT) 19, Alkaline Phosphatase 86, Pro-B-Type Natriuretic Peptide 194H, Total Protein 6.1L, Albumin 3.4L, Globulin 2.7, Albumin/Globulin Ratio 1.2 Height (Feet): 5 Height (Inches): 9.00 Weight (Pounds): 246 General Appearance: no apparent distress Objective no change- no signs of CHF ISRRAEL SHARMA Jan 08, 2017 08:57
[2017-01-08] MEDS ORDERED: Augmentin 875mg Tab ORAL SCH (09:00)
[2017-01-08] MEDS ORDERED: BuPROPion SR 150mg tab ORAL SCH (09:00)
--- NOTE | 2017-01-08 09:45 | Consultation ---
DATE OF CONSULTATION: 01/07/2017 INFECTIOUS DISEASES CONSULTATION CONSULTING PHYSICIAN: Saurabh Worley M.D. REFERRING PHYSICIAN: Kaylynn Mendoza M.D. Reason For Consultation: Evaluation of the patient for pneumonia and antibiotic management. History of Present Illness: The patient is a 66-year-old male with multiple medical problems as listed below, who was admitted to this medical center due to shortness of breath and cough. Infectious Diseases consultation has been requested for further evaluation of the patient and antibiotic management. The patient also was found to be altered prior to admission and possibly had a syncope after he coughed with sneezing. The patient mentioned that he was taking oral Zithromax prior to admission. PAST MEDICAL HISTORY: 1. Bipolar disorder. 2. Hypertension. 3. Obesity. 4. Constipation. 5. Renal insufficiency. 6. Hypothyroidism. 7. Bipolar disorder/depression. MEDICATIONS: Zosyn. ALLERGIES: Alprazolam. FAMILY HISTORY: Noncontributory. Review Of Systems: Limited. Most of the information has been able to be gathered as mentioned above. PHYSICAL EXAMINATION: Vital Signs: Temperature 97.9, pulse 86, respiratory rate 18, and blood pressure 142/78. HEENT: No pale conjunctivae. No icterus. NECK: No lymphadenopathy. CHEST: Mild basilar crackles. HEART: S1 and S2. ABDOMEN: Soft. EXTREMITIES: No cyanosis. NEUROLOGIC: Awake and alert. Laboratory and diagnostic Data: White blood cells 8, hemoglobin 11, and platelets 257,000. UA unremarkable. BUN 20 and creatinine 1.6. Liver function test unremarkable. Chest x-ray, no acute disease. Assessment: The patient is a 66-year-old male with multiple medical problems who was admitted to this medical center. The patient may have cough due to possibly community-acquired pneumonia. The patient has been started on Zosyn and the patient was feeling better. PLAN: 1. We will continue the patient on Zosyn for 5 to 7 days. 2. Monitor CBC. 3. Monitor BMP. 4. Get chest x-ray. 5. Based on the patient's clinical course and labs, we will do further recommendation. Thank you, Dr. Mendoza, for allowing me to participate in the care of this patient. I will follow the patient with you during this hospitalization. Saurabh Worley M.D. DR: TITO JOB#: [id number] CC:
--- NOTE | 2017-01-08 11:46 | General Progress Note ---
Subjective Allergies: Coded Allergies: ALPRAZOLAM (Verified Adverse Reaction, Intermediate, 01/30/16) slurred speech, unsteady gait, poor decision making Objective Last 24 Hour Vital Signs Date Time Temp Pulse Resp B/P (MAP) Pulse Ox O2 Delivery O2 Flow Rate FiO2 01/08/17 10:00 71 01/08/17 08:00 97.5 84 17 160/78 93 Room Air 01/08/17 07:15 Room Air 01/08/17 07:15 96 Room Air 21 01/08/17 07:15 Room Air 01/08/17 07:15 Room Air 01/08/17 04:00 97.5 69 20 152/84 95 Nasal Cannula 2.0 01/08/17 02:01 70 18 99 Nasal Cannula 2.0 28 01/08/17 01:47 73 18 98 Nasal Cannula 2.0 28 01/08/17 00:00 97.5 64 20 143/76 93 Room Air 01/07/17 20:00 97.6 64 19 171/89 95 Room Air 01/07/17 19:57 71 18 97 Nasal Cannula 2.0 28 01/07/17 19:39 97 Nasal Cannula 2.0 28 01/07/17 19:39 70 18 97 Nasal Cannula 2.0 28 01/07/17 19:39 Nasal Cannula 2.0 28 01/07/17 16:00 97.9 74 20 142/78 96 Nasal Cannula 01/07/17 13:16 67 20 99 Nasal Cannula 2.0 28 01/07/17 13:16 69 20 Nasal Cannula 21 01/07/17 13:05 65 18 98 Nasal Cannula 2.0 28 01/07/17 12:00 97.9 75 20 140/82 95 Nasal Cannula Laboratory Tests 01/08/17 05:20: White Blood Count 5.3, Red Blood Count 2.95L, Hemoglobin 9.7L, Hematocrit 28.4L , Mean Corpuscular Volume 96, Mean Corpuscular Hemoglobin 33.0H, Mean Corpuscular Hemoglobin Concent 34.2, Red Cell Distribution Width 11.9, Platelet Count 211, Mean Platelet Volume 7.1, Neutrophils (%) (Auto) 68.4, Lymphocytes (% ) (Auto) 17.2L, Monocytes (%) (Auto) 9.0, Eosinophils (%) (Auto) 4.9H, Basophils (%) (Auto) 0.5, Sodium Level 140, Potassium Level 4.2, Chloride Level 103, Carbon Dioxide Level 26, Anion Gap 11, Blood Urea Nitrogen 15, Creatinine 1.5H, Estimat Glomerular Filtration Rate 46.5, Glucose Level 108H, Uric Acid 5.4 , Calcium Level 8.6, Phosphorus Level 3.0, Magnesium Level 2.1, Total Bilirubin 0.5, Aspartate Amino Transf (AST/SGOT) 29, Alanine Aminotransferase (ALT/SGPT) 19, Alkaline Phosphatase 86, Pro-B-Type Natriuretic Peptide 194H, Total Protein 6.1L, Albumin 3.4L, Globulin 2.7, Albumin/Globulin Ratio 1.2 Height (Feet): 5 Height (Inches): 9.00 Weight (Pounds): 246 Tyler Sage M.D. Jan 08, 2017 11:46
[2017-01-08 12:00] VITALS: BP 155/97
[2017-01-08] MEDS ORDERED: AUGMENTIN 875-1 EAC1 ORAL (13:02)
[2017-01-08 13:07] VITALS: BP 155/97
--- NOTE | 2017-01-08 14:32 | Pulmonology Progress Note ---
Assessment/Plan Problems: (1) Acute encephalopathy (2) Syncope (3) ATN (acute tubular necrosis) (4) Hypotension (5) Psychiatric diagnosis Assessment/Plan improving renal function improved psych evaluation as well urology consult appreciated PSa ordered dc home with HH/ Subjective ROS Limited/Unobtainable: No Constitutional: Reports: no symptoms HEENT: Repors: no symptoms Respiratory: Reports: no symptoms Allergies: Coded Allergies: ALPRAZOLAM (Verified Adverse Reaction, Intermediate, 01/30/16) slurred speech, unsteady gait, poor decision making Objective Last 24 Hour Vital Signs Date Time Temp Pulse Resp B/P (MAP) Pulse Ox O2 Delivery O2 Flow Rate FiO2 01/08/17 13:07 73 155/97 01/08/17 12:50 Room Air 01/08/17 12:50 Room Air 01/08/17 12:00 97.5 73 15 155/97 93 01/08/17 10:00 71 01/08/17 08:00 97.5 84 17 160/78 93 Room Air 01/08/17 07:15 Room Air 01/08/17 07:15 96 Room Air 21 01/08/17 07:15 Room Air 01/08/17 07:15 Room Air 01/08/17 04:00 97.5 69 20 152/84 95 Nasal Cannula 2.0 01/08/17 02:01 70 18 99 Nasal Cannula 2.0 01/08/17 01:47 73 18 98 Nasal Cannula 2.0 01/08/17 00:00 97.5 64 20 143/76 93 Room Air 01/07/17 20:00 97.6 64 19 171/89 95 Room Air 01/07/17 19:57 71 18 97 Nasal Cannula 2.0 01/07/17 19:39 97 Nasal Cannula 2.0 01/07/17 19:39 70 18 97 Nasal Cannula 2.0 01/07/17 19:39 Nasal Cannula 2.0 28 01/07/17 16:00 97.9 74 20 142/78 96 Nasal Cannula General Appearance: WD/WN HEENT: normocephalic, atraumatic Respiratory/Chest: chest wall non-tender, lungs clear Cardiovascular: normal peripheral pulses, normal rate Abdomen: normal bowel sounds, soft, non tender Genitourinary: normal external genitalia Extremities: no clubbing Skin: no lesions 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 normal, no motor/sensory deficits Lymphatic: no neck adenopathy Laboratory Tests 01/08/17 05:20: White Blood Count 5.3, Red Blood Count 2.95L, Hemoglobin 9.7L, Hematocrit 28.4L , Mean Corpuscular Volume 96, Mean Corpuscular Hemoglobin 33.0H, Mean Corpuscular Hemoglobin Concent 34.2, Red Cell Distribution Width 11.9, Platelet Count 211, Mean Platelet Volume 7.1, Neutrophils (%) (Auto) 68.4, Lymphocytes (% ) (Auto) 17.2L, Monocytes (%) (Auto) 9.0, Eosinophils (%) (Auto) 4.9H, Basophils (%) (Auto) 0.5, Sodium Level 140, Potassium Level 4.2, Chloride Level 103, Carbon Dioxide Level 26, Anion Gap 11, Blood Urea Nitrogen 15, Creatinine 1.5H, Estimat Glomerular Filtration Rate 46.5, Glucose Level 108H, Uric Acid 5.4 , Calcium Level 8.6, Phosphorus Level 3.0, Magnesium Level 2.1, Total Bilirubin 0.5, Aspartate Amino Transf (AST/SGOT) 29, Alanine Aminotransferase (ALT/SGPT) 19, Alkaline Phosphatase 86, Pro-B-Type Natriuretic Peptide 194H, Total Protein 6.1L, Albumin 3.4L, Globulin 2.7, Albumin/Globulin Ratio 1.2 Current Medications Medications (Trade) Dose Ordered Sig/Ira Route PRN Reason Start Time Stop Time Status Last Admin Dose Admin Acetaminophen (Tylenol) 650 mg Q4H PRN ORAL T>100.5 01/07/17 12:00 02/03/17 11:59 Albuterol/ Ipratropium (DuoNeb 0.5-3(2.5)mg/3ml) 3 ml Q4H PRN HHN Shortness of Breath 01/07/17 12:00 01/09/17 11:59 Albuterol/ Ipratropium (DuoNeb 0.5-3(2.5)mg/3ml) 3 ml Q6HRT HHN 01/07/17 13:00 01/09/17 06:59 01/08/17 01:47 Amlodipine Besylate (Norvasc) 5 mg DAILY ORAL 01/08/17 12:00 02/07/17 11:59 01/08/17 13:07 Amoxicillin/ Clavulanate Potassium (Augmentin) 875 mg EVERY 12 HOURS ORAL 01/08/17 09:00 01/15/17 08:59 01/08/17 08:36 Atorvastatin Calcium (Lipitor) 80 mg BEDTIME ORAL 01/07/17 21:00 02/03/17 20:59 01/07/17 21:12 Bupropion HCl (Wellbutrin SR) 150 mg DAILY ORAL 01/08/17 09:00 02/03/17 08:59 01/08/17 08:37 Clonidine HCl (Catapres) 0.1 mg Q4H PRN ORAL SBP>160mmHg 01/07/17 12:00 02/03/17 11:59 Dextrose (Dextrose 50%) STAT PRN IV Hypoglycemia 01/07/17 12:00 02/06/17 11:59 Escitalopram Oxalate (Lexapro) 20 mg DAILY ORAL 01/08/17 09:00 02/03/17 08:59 01/08/17 08:37 Gabapentin (Neurontin) 300 mg DAILY ORAL 01/08/17 09:00 02/03/17 08:59 01/08/17 08:38 Heparin Sodium (Porcine) (Heparin 5000 units/ml) 5,000 units EVERY 12 HOURS SUBQ 01/07/17 21:00 02/03/17 08:59 01/08/17 08:54 Liothyronine Sodium (Cytomel) 10 mcg DAILY@0630 ORAL 01/08/17 06:30 02/04/17 06:29 01/08/17 05:47 Lorazepam (Ativan 2mg/ml 1ml) 0.5 mg Q4H PRN IV For Anxiety 01/07/17 12:00 01/11/17 11:59 Morphine Sulfate (Morphine Sulfate) 1 mg Q4H PRN IVP For Pain 7-10 01/07/17 12:00 01/11/17 11:59 Nitroglycerin (Ntg) 0.4 mg Q5M X 3 DOSES PRN SL Prn Chest Pain 01/07/17 11:30 02/03/17 06:44 Nortriptyline HCl (Pamelor) 25 mg Q12HR ORAL 01/07/17 21:00 02/03/17 08:59 01/08/17 08:38 Ondansetron HCl (Zofran) 4 mg Q6H PRN IVP Nausea & Vomiting 01/07/17 12:00 02/03/17 11:59 Polyethylene Glycol (Miralax) 17 gm HSPRN PRN ORAL Constipation 01/07/17 21:00 02/06/17 20:59 Promethazine HCl/ Codeine (Phenergan with Codeine) 5 ml Q4H PRN ORAL For Cough 01/07/17 12:00 02/03/17 11:59 01/08/17 05:19 Quetiapine Fumarate (SEROquel) 50 mg Q8HR ORAL 01/07/17 14:00 02/06/17 13:59 01/08/17 05:46 Tamsulosin HCl (Flomax) 0.4 mg BID ORAL 01/07/17 18:00 02/03/17 08:59 01/08/17 08:38 Temazepam (Restoril) 15 mg HSPRN PRN ORAL Insomnia 01/07/17 21:00 01/14/17 20:59 CATALINO MCKENZIE Jan 08, 2017 14:32
--- NOTE | 2017-01-10 08:54 | Discharge Summary ---
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
--- NOTE | 2017-01-11 03:15 | Discharge Summary 2 SIG ---
DATE OF ADMISSION: 01/03/2017 DATE OF DISCHARGE: 01/08/2017 CONSULTANTS: 1. Philipp Zamora M.D. 2. Janes Doll M.D. 3. Tyler Sage M.D. 4. Saurabh Worley M.D. 5. Beau Waggoner M.D. Brief Hospital Course: The patient is a 66-year-old male with past medical history of psychiatric disorder, bipolar, hypertension, and hypercholesterolemia, who was brought in by paramedics to [facility] due to altered level of consciousness and acute encephalopathy with episode of syncope after seizing. On evaluation at ED, the patient was hypotensive, blood pressure 96/46. She was started on IV fluids. Head CT was negative for acute intracranial bleed, mass effect, or edema with mild atrophy of the brain and nonspecific white matter hypoattenuation due to chronic small vessel disease. Creatinine was elevated to 2.3. She had laceration on the upper posterior scalp, status post repair in the ED. She was also given tetanus shot. EKG was in normal sinus rhythm with no acute changes. Chest x-ray was negative for pneumonia and no acute disease. No consolidation, effusion or pneumothorax. She was then admitted for evaluation of syncope, encephalopathy with kidney failure, and hypotension. He underwent cardiac evaluation by Dr. Zamora. The patient is usually on antihypertensive medications, however, post syncope blood pressure was on the low side. He was given IV hydration. Echocardiogram done showed EF of 60% to 65%. There was no regurgitation noted. Carotid ultrasound was negative for significant plaque bilaterally. Telemetry data showed basically sinus rhythm. There were no pauses, no ventricular tachycardia, no SVT, no bradycardia noted. Cardiac enzymes was negative. Orthostatic BP was checked twice and was negative. Intravenous fluid was then discontinued. She underwent psychiatric evaluation and was diagnosed to have major depressive disorder and was continued on Lexapro, Wellbutrin, and Seroquel. The patient had shortness of breath and cough and was taking Zithromax prior to admission. He was initially started on Zosyn. Sputum culture showed normal shaw. Zosyn was discontinued and was changed to Augmentin to complete antibiotic treatment upon discharge. Creatinine improved with IV hydration. Renal ultrasound showed mass at the base of the bladder. Kidneys were unremarkable. Pelvic ultrasound showed nonspecific prostatomegaly. The patient denies nocturia and had good force of stream. There was no straining or difficulty emptying the bladder. He had no urinary symptoms and had complete emptying of bladder. 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 Recommended observation for now and can follow up as outpatient for prostate exam and workup. PSA was 1. He was eventually discharged home with home health. FINAL DIAGNOSES: 1. Acute metabolic encephalopathy. 2. Syncope. 3. Acute kidney injury with acute tubular necrosis. 4. Hypertension. 5. Psychiatric disorder. 6. Major depressive disorder. 7. Enlarged prostate with no urinary symptoms. DISPOSITION: Discharged home with home health. DISCHARGE MEDICATIONS: Refer to medication list. FOLLOWUP: Follow up with Urology and PMD in a week. Kaylynn Mendoza M.D. I have been assigned to dictate discharge summary on this account and I was not involved in the patient's management. Alexandra Cesar N.P. DR: KATHRYN JOB#: [id number] CC:
== END 2017-01-08 15:11 | disposition home or self-care (01) | DRG 70 ==
LOC: EDBD 20:35 → EDUNIT# 20:35 → EMR 21:25 → EDBEDREQ 21:53 → 2E 23:29 → 3E 01-07 11:10
DX: G93.41 Metabolic encephalopathy (principal); N17.0 Acute kidney failure with tubular necrosis; I95.9 Hypotension, unspecified; F33.9 Major depressive disorder, recurrent, unspecified; S01.01XA Laceration without foreign body of scalp, initial encounter; I12.9 Hypertensive chronic kidney disease with stage 1 through stage 4 chronic kidney disease, or unspecified chronic kidney disease; J98.01 Acute bronchospasm; E86.0 Dehydration; R55 Syncope and collapse; W19.XXXA Unspecified fall, initial encounter; Z88.8 Allergy status to other drugs, medicaments and biological substances; F19.21 Other psychoactive substance dependence, in remission; E78.00 Pure hypercholesterolemia, unspecified; N18.9 Chronic kidney disease, unspecified; Z23 Encounter for immunization; N40.0 Benign prostatic hyperplasia without lower urinary tract symptoms
CPT/HCPCS: 36415; 70450; 71010; 76775; 76857; 80053; 80061; 81001; 81003; 82270; 82378; 82550; 82553; 82607; 82728; 82746; 82977; 83036; 83540; 83550; 83605; 83615; 83735; 83880; 84100; 84133; 84153; 84154; 84300; 84443; 84484; 84550; 85007; 85025; 85044; 85060; 85610; 85651; 85730; 86140; 87040; 87070; 87081; 87205; 89050; 90471; 90715; 90732; 93005; 93306; 93880; 94640; 94664; 94760; 99285; J7620

== ENCOUNTER 2017-01-16 11:41 | Emergency (ER) | payer MEDICARE, MEDICAID ==
[~2017-01-16] VITALS: Ht 175.3 cm; Wt 108.9 kg
[~2017-01-16 11:41] MED LIST changes: +AUGMENTIN 875-1 EAC1 ORAL; +AZITHROMYCIN250 MG ORAL; +BUPROPION HCL150 M5 ORAL; +ESCITALOPRAM OX20 MG ORAL; +FLOMAX0.4 MG ORAL; +LIPITOR80 MG ORAL; +NEURONTIN300 MG ORAL; +NORTRIPTYLINE H25 MG ORAL; +SEROQUEL25 MG ORAL
[2017-01-16 11:55] VITALS: BP 132/84
[2017-01-16] MEDS ORDERED: BACITRACIN-P28.35 GM TP (12:15)
--- NOTE | 2017-01-16 12:15 | Emergency Room Report ---
History of Present Illness General Chief Complaint: Wound Recheck/Suture Removal Source: Patient, Medical Record Present Illness HPI 66-year-old male presents emergency department for staple removal from the posterior scalp. Patient had latasha placed approximately 10 days ago. Patient denies fevers, chills, redness, bleeding, discharge, or tenderness. Patient is up-to-date with vaccinations. Denies headache, dizziness, slurred speech, imbalance or syncope. Allergies: Coded Allergies: ALPRAZOLAM (Verified Adverse Reaction, Intermediate, 01/30/16) slurred speech, unsteady gait, poor decision making Patient History Past Medical History: see triage record Past Surgical History: none Pertinent Family History: none Reviewed Nursing Documentation: PMH: Agreed, PSxH: Agreed Nursing Documentation-PMH Hx Cardiac Problems: Yes Hx Hypertension: Yes Hx Pacemaker: No Hx Asthma: No Hx COPD: No Hx Cancer: No Hx Gastrointestinal Problems: No Hx Neurological Problems: Yes Hx Head Trauma: Yes Hx Syncope: Yes Review of Systems All Other Systems: negative except mentioned in HPI Physical Exam Vital Signs Date Time Temp Pulse Resp B/P (MAP) Pulse Ox O2 Delivery O2 Flow Rate FiO2 01/16/17 11:55 97.0 14 132/84 96 Room Air 01/16/17 11:55 73 Sp02 EP Interpretation: reviewed, normal General Appearance: no apparent distress, alert, GCS 15, non-toxic Head: normocephalic, atraumatic Eyes: bilateral eye normal inspection, bilateral eye PERRL ENT: hearing grossly normal, normal voice Neck: full range of motion Respiratory: lungs clear, normal breath sounds, speaking full sentences Cardiovascular #1: regular rate, rhythm Musculoskeletal: back normal, gait/station normal, normal range of motion, non- tender Neurologic: alert, oriented x3, responsive, motor strength/tone normal, sensory intact, normal gait, speech normal Psychiatric: judgement/insight normal, memory normal, mood/affect normal Skin: normal color, no rash, warm/dry, well hydrated, wd healing/no infection noted - [address], posterior scalp. Medical Decision Making PA Attestation Dr. Pop is my supervising Physician whom patient management has been discussed with. Diagnostic Impression: Primary Impression: Encounter for removal of sutures ER Course 66-year-old male presents emergency department for staple removal from the posterior scalp. Patient had latasha placed approximately 10 days ago. Patient denies fevers, chills, redness, bleeding, discharge, or tenderness. Patient is up-to-date with vaccinations. Denies headache, dizziness, slurred speech, imbalance or syncope. Ddx considered but are not limited to laceration, tendon injury, cellulitis, dehiscence. Vital signs: are WNL, pt. is afebrile H&PE are most consistent with: healed laceration of the posterior scalp ORDERS: none required at this time, the diagnosis is clinical ED INTERVENTIONS: - 3 Latasha removed. DISCHARGE: At this time pt. is stable for d/c to home. Will provide printed patient care instructions, and any necessary prescriptions. Care plan and follow up instructions have been discussed with the patient prior to discharge. Last Vital Signs Date Time Temp Pulse Resp B/P (MAP) Pulse Ox O2 Delivery O2 Flow Rate FiO2 01/16/17 11:55 97.0 73 14 132/84 96 Room Air Disposition: HOME, SELF-CARE Condition: Stable Patient Instructions: Wound Closure Removal Additional Instructions: Take medications as directed. Follow up with a Primary Care Provider in 3-5 days, even if your symptoms have resolved. --Please review list of primary care clinics, if you do not already have a primary care provider Return sooner to ED if new symptoms occur, or current symptoms become worse. - Please note that this Emergency Department Report was dictated using [employer] technology software, occasionally this can lead to erroneous entry secondary to interpretation by the dictation equipment. Salena Berumen Jan 16, 2017 12:15
[2017-01-16 12:21] VITALS: BP 132/84
== END 2017-01-16 12:25 | disposition home or self-care (01) ==
LOC: EMR 12:10
DX: S01.01XD Laceration without foreign body of scalp, subsequent encounter (principal); X58.XXXD Exposure to other specified factors, subsequent encounter; Z48.02 Encounter for removal of sutures; I10 Essential (primary) hypertension; Z88.8 Allergy status to other drugs, medicaments and biological substances
CPT/HCPCS: 99281